=== PATIENT | male | born 1935 | race Caucasian/White ===

== ENCOUNTER 2019-04-08 13:47 | Inpatient (IN) ==
[2019-04-08] MEDS ORDERED: ROCEPHIN 1 GM in NS 50 ML IV ONE (14:18)
[2019-04-08] MEDS ORDERED: DUONEB (A & A) INH ONE (14:19)
--- NOTE | 2019-04-08 14:58 | EKG Report ---
Test Performed on : 04/08/2019 2:00:25 PM Test Reason : sob Blood Pressure : / mmHG Vent. Rate : 078 BPM Atrial Rate : 258 BPM P-R Int : 000 ms QRS Dur : 088 ms QT Int : 374 ms P-R-T Axes : 000 -78 079 degrees QTc Int : 426 ms Atrial fibrillation. Left axis deviation Low voltage QRS Inferior infarct , age undetermined Cannot rule out Anteroseptal infarct (cited on or before 30-NOV-2015) Abnormal ECG When compared with ECG of 13-AUG-2018 14:36, No significant change was found Unconfirmed Result
[2019-04-08 15:09] LABS: BASO# 0.02 X1000 (0.0-0.2); BASO% 0.2 % (0.0-0.8); EOS# 0.16 X1000 (0.0-0.7); EOS% 1.8 % (0.0-10.0); HEMATOCRIT 45.4 % (42.0-52.0); HEMOGLOBIN 15.6 g/dL (14.0-18.0); IMM GRAN# 0.03 X1000 (0.0-0.04); IMM GRAN% 0.3 % (0.0-0.5); LYMPH# 0.69 X1000 (1.2-3.4); LYMPH% 7.7 % (20.5-51.1); MCH 30.1 PG (27-31); MCHC 34.4 g/dL (33-37); MCV 87.5 FL (81-99); MONO# 1.25 X1000 (0.11-0.59); MPV 10.5 FL (7.4-10.4); NEUT# 6.79 X1000 (1.4-6.5); PLT 201 X1000 (130-400); RBC 5.19 XMIL (4.7-6.1); RDW 14.3 % (11.5-14.5); WBC 8.94 X1000 (4.8-10.8)
[2019-04-08 15:29] LABS: AGAP 14; ALB/GLOB RATIO 1.4; ALBUMIN 3.6 g/dL (3.5-5.0); ALKALINE PHOSPHATASE 208 U/L (32-122); BUN 16 mg/dL (8-22); CALCIUM 8.9 mg/dL (8.8-10.2); CHLORIDE 98 mmol/L (98-107); CK PROFILE 78 U/L (24-204); COSMO 272; CREATININE 1.1 mg/dL (0.7-1.2); ESTIMATED GFR > 60; GLUCOSE 114 mg/dL (70-104); GOT 54 U/L (10-34); GPT 55 U/L (10-44); POTASSIUM 3.7 mmol/L (3.5-5.1); SODIUM 135 mmol/L (136-145); TCO2 23 mmol/L (25-35); TOTAL BILIRUBIN 1.38 mg/dL (0.20-1.00); TOTAL PROTEIN 6.2 g/dL (6.3-8.3)
[2019-04-08 15:45] LABS: INR 1.87; PROTIME 22.9 Seconds (11.0-16.0)
[2019-04-08 15:46] LABS: PTT 48.6 Seconds (22.3-41.8)
[2019-04-08] MEDS ORDERED: TYLENOL PO PRN (16:36)
[2019-04-08] MEDS ORDERED: ZOFRAN IV PRN (16:36)
--- NOTE | 2019-04-08 16:43 | Diag Imaging Result Doc PS360 ---
EXAM: CHEST-2 VIEWS INDICATION: cough, greenish sputum, sob TECHNIQUE: 2 views COMPARISON: 12/21/2018 FINDINGS: There are COPD changes. There is ill-defined consolidation at the right lung base suggesting likely right lower lobe pneumonia. There is stable biapical fibrotic change. There is no significant pleural fluid collection or pneumothorax. The cardiomediastinal silhouette and central vasculature are grossly unremarkable. IMPRESSION: Ill-defined right lower lobe consolidation suggesting likely pneumonia. Electronically signed by Jaylen Gates 04/08/2019 4:41 PM
[2019-04-08] MEDS ORDERED: ZITHROMAX 500 MG/NS 500 MG/250 ML IVPB IV SCH (17:00)
[2019-04-08] MEDS: SOLU-MEDROL IV SCH ×2 (17:07→18:48)
--- NOTE | 2019-04-08 17:36 | PROVIDER DOCUMENTATION ---
This chart was entered by Tess Dey Scribe, acting as scribe for Donny Barton MD. HPI-Respiratory General - General Chief Complaint: Shortness of Breath Stated Complaint: SOB / CONGESTION Time Seen by Provider: 04/08/19 14:03 Source: patient Allergies/Adverse Reactions: Patient Allergies Allergy/AdvReac Type Severity Reaction Status Date / Time levofloxacin [From Levaquin] Allergy Unknown Verified 08/13/18 15:06 oxycodone Allergy Unknown Verified 08/13/18 15:10 tetanus toxoid, adsorbed Allergy Unknown Verified 08/13/18 15:06 Home Medications: Home Medication List Medication Instructions Recorded Confirmed Last Taken Type Dorzolamide 2% Oph Soln [Trusopt 1 drop LEFT EYE BID 11/30/15 08/13/18 08/13/18 History 2% Oph Soln] Latanoprost 0.005% Oph Soln 1 drop BOTH EYES HS 11/30/15 08/13/18 08/13/18 History [Xalatan 0.005% Oph Soln] Timolol 0.5% Oph Solution 1 drop LEFT EYE BID 11/30/15 08/13/18 08/13/18 History [Timoptic 0.5% Oph Solution] Apixaban [Eliquis] 5 mg PO BID 09/08/16 08/13/18 08/13/18 History Folic Acid 1 mg PO DAILY #30 tablet 09/15/16 08/13/18 08/13/18 Rx Tiotropium [place] Inhaler 1 puff INH RTDAILY #1 inhaler 11/16/17 08/13/18 08/13/18 Rx [Spiriva] Diltiazem HCl [Cartia Xt] 120 mg PO QAM 08/13/18 08/13/18 08/13/18 History Fluticasone/Salmeterol [Advair 1 each IH BID 08/13/18 08/13/18 08/13/18 History 500-50 Diskus] - History of Present Illness-Resp Nature of Presenting Problem: 84yom presents to ED by EMS cc SOB, wheezing and cough. Pt reports he was treated last week with Augmentin for Strep/pharyngitis. Pt also reports he is on home 02 of 2liters 24hrs a day. Pt is A&Ox3. Pt has hx of CHF, COPD and HTN. denies chest pain. Review of Systems - Adult - REVIEW OF SYSTEMS - ADULT Constitutional: reports: no symptoms reported Eyes: reports: no symptoms reported Ears, Nose, Mouth & Throat: reports: no symptoms reported Cardiovascular: denies: chest pain, palpitations Respiratory: reports: see HPI Gastrointestinal: reports: no symptoms reported Genitourinary: reports: no symptoms reported Past History - Adult - PAST MEDICAL HISTORY-ADULT Review of Records: reports: Nursing Assessment Review, Medications Reviewed, Social history reviewed & non-contributory. Major Childhood Illnesses: reports: denies history Cardiovascular: reports: A-Fib, CHF, HTN, hyperlipidemia Respiratory: reports: COPD Gastrointestinal: reports: denies history Obstetrical/Gynecological: reports: denies history Genitourinary: reports: denies history Musculoskeletal: reports: denies history Neurological: reports: denies history Psychiatric: reports: denies history Endocrine/Immune: reports: denies history Other Conditions: reports: denies history - PRIOR SURGERIES/PROCEDURES Surgical/Procedure History: reports: reviewed, not pertinent - IMMUNIZATION STATUS Childhood Immunizations: See Nurse Assessment Flu Vaccine: See Nurse Assessment - FAMILY HISTORY Family History: reviewed, not pertinent Physical Exam-General - CONSTITUTIONAL General Appearance: appears well, alert, mild distress - EYES Eyes: PERRL/EOMI, pink conjunctivae - HEAD, EARS, NOSE, MOUTH & THROAT HENMT: normocephalic/atraumatic, moist mucous membranes, normal ENT inspection - RESPIRATORY Respiratory: respiratory distress (mild), accessory muscle use, crackles (Rt lower lung), wheezing (expiratory, bilaterally), other (Tachypneic Fair airway entry, bilaterally). negative: rales, rhonchi, stridor - CARDIOVASCULAR Cardiovascular: normal peripheral pulses, no edema, irregularly irregular. negative: bradycardia, tachycardia - GASTROINTESTINAL (ABDOMEN) Abdominal Exam: normal bowel sounds, non tender, soft - MUSCULOSKELETAL Extremity: normal range of motion, non-tender, normal gait, normal inspection - SKIN Integumentary: normal color, normal turgor, warm/dry - NEUROLOGIC Neurologic: patient safety sitter II-XII nml as tested, grossly normal, no motor/sensory deficits - PSYCHIATRIC Psych/Mental Status: normal thought content, normal thought process, oriented x 3 Progress - PLAN OF CARE/RESULTS Progress/Plan/Lab Results: Vital Signs - 8 hr 04/08/19 13:56 04/08/19 14:08 04/08/19 14:09 Temperature 98.3 F Pulse Rate 85 Respiratory Rate 26 H Blood Pressure 123/79 153/83 O2 Sat by Pulse Oximetry 85 L 92 L 92 L 04/08/19 14:30 04/08/19 14:32 04/08/19 15:00 Temperature Pulse Rate Respiratory Rate Blood Pressure 137/80 O2 Sat by Pulse Oximetry 93 L 92 L 94 L 04/08/19 15:02 04/08/19 15:15 Temperature Pulse Rate Respiratory Rate Blood Pressure 129/96 132/83 O2 Sat by Pulse Oximetry 92 L 89 L Laboratory Results - last 24 hr 04/08/19 04/08/19 04/08/19 14:50 14:50 14:50 WBC 8.94 RBC 5.19 Hgb 15.6 Hct 45.4 MCV 87.5 MCH 30.1 MCHC 34.4 RDW Std Deviation 14.3 Plt Count 201 MPV 10.5 H Immature Gran % (Auto) 0.3 Neut % (Auto) 76.0 H Lymph % (Auto) 7.7 L [place] % (Auto) 14.0 H Eos % (Auto) 1.8 Baso % (Auto) 0.2 Immature Gran # (Auto) 0.03 Neut # (Auto) 6.79 H Lymph # (Auto) 0.69 L [place] # (Auto) 1.25 H Eos # (Auto) 0.16 Baso # (Auto) 0.02 PT INR PTT (Actin FS) Sodium 135 L Potassium 3.7 Chloride 98 Carbon Dioxide 23 L Anion Gap 14 BUN 16 Creatinine 1.1 Estimated GFR/1.73 m2 > 60 BUN/Creatinine Ratio 15 Glucose 114 H Calculated Osmolality 272 Calcium 8.9 Total Bilirubin 1.38 H AST 54 H ALT 55 H Alkaline Phosphatase 208 H Creatine Kinase 78 Troponin T Cvp-E-Nlxemngeikg Pept 706 H Total Protein 6.2 L Albumin 3.6 Globulin 2.6 Albumin/Globulin Ratio 1.4 04/08/19 04/08/19 14:50 14:50 WBC RBC Hgb Hct MCV MCH MCHC RDW Std Deviation Plt Count MPV Immature Gran % (Auto) Neut % (Auto) Lymph % (Auto) [place] % (Auto) Eos % (Auto) Baso % (Auto) Immature Gran # (Auto) Neut # (Auto) Lymph # (Auto) [place] # (Auto) Eos # (Auto) Baso # (Auto) PT 22.9 H INR 1.87 PTT (Actin FS) 48.6 H Sodium Potassium Chloride Carbon Dioxide Anion Gap BUN Creatinine Estimated GFR/1.73 m2 BUN/Creatinine Ratio Glucose Calculated Osmolality Calcium Total Bilirubin AST ALT Alkaline Phosphatase Creatine Kinase Troponin T < 0.010 Dxj-[id number]-Xhcjbkfzhlv Pept Total Protein Albumin Globulin Albumin/Globulin Ratio Orders Category Date Time Status Admit - [facility] Routine AdmDCTranf 04/08/19 16:34 Active Activity - Up with Assistance ORDERED Care 04/08/19 16:34 Active Cardiac Monitoring DIRECTED Care 04/08/19 14:17 Active Intake and Output-Strict ORDERED Care 04/08/19 16:34 Active Oxygen Therapy- ED Nursing DIRECTED Care 04/08/19 14:17 Active Saline Loc NOW Care 04/08/19 14:17 Active Vital Signs Order Q 4-HR ASSESS Care 04/08/19 16:34 Active Z-Document. for Tele Applied ORDERED Care 04/08/19 16:34 Active Heart Healthy Diet Diet 04/08/19 16:35 Active CHEST-2 VIEWS [RAD] Stat Exams 04/08/19 14:17 Completed ABG [RESP] Routine Lab 04/09/19 06:00 Uncollected BASIC METABOLIC PANEL [CHEM] Routine Lab 04/09/19 06:00 Ordered CBC WITH ELECTRONIC DIFF [HEME] Stat Lab 04/08/19 14:50 Completed CBC WITH NO DIFF [HEME] Routine Lab 04/09/19 06:00 Ordered CK PROFILE [SP CHEM] Stat Lab 04/08/19 14:50 Completed COMPREHENSIVE METABOLIC PANEL [CHEM] Stat Lab 04/08/19 14:50 Completed PRO B-NATRIURETIC PEPTIDE Stat Lab 04/08/19 14:50 Completed PROTIME WITH INR [COAG] Stat Lab 04/08/19 14:50 Completed PTT [COAG] Stat Lab 04/08/19 14:50 Completed TROPONIN T Stat Lab 04/08/19 14:50 Completed Acetaminophen [Tylenol] Med 04/08/19 16:36 Active 650 mg PO Q6H PRN PRN Albuterol 2.5MG/Ipratrop 0.5MG [Duoneb (A & A)] Med 04/08/19 19:30 Active 3 ml INH RTQ4H Albuterol 2.5MG/Ipratrop 0.5MG [Duoneb (A & A)] Med 04/08/19 14:19 Discontin ued 6 ml INH NOW ONE Azithromycin 500 mg/Ns [Zithromax 500 mg/Ns] Med 04/08/19 17:00 Discontinued 500 mg in 250 ml IV Q24H CefTRIAXONE [Rocephin] 1 gm Med 04/08/19 14:18 Discontinued 0.9% Sodium Chloride Inj [Ns] 50 ml IV NOW Diltiazem C.d. [Cardizem Cd] Med 04/09/19 09:00 Active 120 mg PO DAILY Fluticasone/Salmet 500/50 INH [Advair 500/50 Diskus] Med 04/08/19 19:30 Active 1 puff INH RTBID Methylprednisolone Sod Succ [Solu-Medrol] Med 04/08/19 18:00 Active 40 mg IV Q8H Ondansetron [Zofran] Med 04/08/19 16:36 Active 4 mg IV Q4H PRN PRN Aerosol Treatments Routine Oth 04/08/19 14:19 Completed Aerosol Treatments Routine Oth 04/08/19 16:33 Completed Aerosol Treatments Stat Oth 04/08/19 14:19 Completed Aerosol Treatments Stat Oth 04/08/19 16:33 Completed CP/SOB/Palp >45 yrs of Age Stat Oth 04/08/19 14:17 Ordered MDI Treatments Stat Ot 04/08/19 16:36 Completed Oxygen Device Routine Oth 04/08/19 16:30 Completed Pulse Oximetry Routine Oth 04/08/19 16:30 Completed Telemetry [OM.EQ] Routine Oth 04/08/19 16:34 Active EKG [EKG] Stat Ther 04/08/19 13:59 Draft Transfer/Admit Order [TRANSFER] Routine Transfer 04/08/19 16:38 Ordered Result Diagrams: 04/08/19 14:50 04/08/19 14:50 - EKG 1 Time of EKG reading by physician:: 14:07 EKG Read and Signed by:: Donny Barton EKG Interpretation (*Must complete 3 of following elements*): Abnormal Rate: 78 Rhythm: atrial fibrillation Alloy: left QRS: other (low voltage) - XRAY 1 XRAY Study: Chest (EXAM: CHEST-2 VIEWS INDICATION: cough, greenish sputum, sob TECHNIQUE: 2 views COMPARISON: 12/21/2018 FINDINGS: There are COPD changes. There is ill-defined consolidation at the right lung base suggesting likely right lower lobe pneumonia. There is stable biapical fibrotic change. There is no significant pleural fluid collection or pneumothorax. The cardiomediastinal silhouette and central vasculature are grossly unremarkable. IMPRESSION: Ill-defined right lower lobe consolidation suggesting likely pneumonia. 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 Chung Time Discussed: 16:27 Consult Disposition: Admit (Hx, PE and pt care discussed, accpeted.) Departure - Departure Date of Disposition Decision: 04/08/19 Time of Disposition Decision: 16:26 DIAGNOSIS: COPD exacerbation Pneumonia Qualifiers: Pneumonia type: due to unspecified organism Laterality: right Lung location: lower lobe of lung Qualified Code(s): J18.1 - Lobar pneumonia, unspecified organism Disposition: ADMITTED INPATIENT 09 Certified Medical Emergency: Emergent Condition: Stable - Critical Care Note This patient required my direct & personal management of CC.: No Attestation - Physician/ SHORTY Attestation Patient care was provided by Advanced Practice Provider:: No The physician spent face to face time with patient:: Yes Advanced Practice Provider documentation review:: Supervising physician onsite and consulted in the evaluation and care of this patient. The physician did have a face to face encounter with the patient. This chart was documented by the indicated scribe, (Tess Dey Scribe) and accurately reflects the services I performed and decisions made by me, Donny Jerez MD, as attested by the provider's signature.
[2019-04-08] MEDS ORDERED: MAXIPIME 2 GM in NS 100 ML IV SCH (18:00)
[2019-04-08] MEDS: NS 1,000 ML IV SCH (18:47)
[2019-04-08] MEDS: ZYVOX 600 MG/D5W 600 MG/300 ML IVPB IV SCH (18:48)
--- NOTE | 2019-04-08 19:22 | Diag Imaging Result Doc PS360 ---
EXAM: CT THORAX W/O CONTRAST INDICATION: pneumonia/copd TECHNIQUE: This exam was performed using automated exposure control, adjustment of mA or kV according to patient size, and/or use of iterative reconstruction technique. COMPARISON: 06/22/2018 FINDINGS: There is very severe pulmonary emphysema with a large bullae at the apices and especially medial to the right middle lobe and anterior segment of the right upper lobe abutting the mediastinum. This is stable. There is a trace pneumothorax at the anterior aspect of the chest overlying the anterior segment of the right upper lobe and right middle lobe. There is also small volume pleural fluid at the right lung base. There is extensive mucous plugging involving the right lower lobe bronchi and there is patchy airspace consolidation involving the right lower lobe indicating pneumonia. There is also a component of atelectasis at the right lung base. There are stable hyperdense pleural plaques at the right lung base. There is biapical pleural and parenchymal fibrosis. There is also stable milder scarring involving the left lower lobe, mainly at the left lung base. There is a stable pleural-based nodule at the posterior lateral left lung base that probably represents a noncalcified granuloma. There is focal and somewhat nodular fibrosis involving the left lower lobe on image 52 of series 3 that is unchanged. There are a few mildly prominent mediastinal and right hilar lymph nodes that are probably reactive. Limited views of the upper abdomen are essentially unremarkable. IMPRESSION: 1.Advanced bullous emphysema. 2.Extensive right lower lobe bronchial mucous plugging with surrounding consolidation indicating pneumonia with a component of atelectasis. 3.Stable patchy fibrotic changes bilaterally. 4.Other incidental/nonacute findings detailed above. Electronically signed by Jaylen Gates 04/08/2019 7:20 PM
[2019-04-08] MEDS: ADVAIR 500/50 DISKUS INH SCH (19:36)
[2019-04-08] MEDS: DUONEB (A & A) INH SCH ×2 (19:37→23:15)
[2019-04-08] MEDS: ZOSYN 3.375 GM in NS 50 ML IV SCH (21:21)
[2019-04-08] MEDS: TESSALON PO SCH (21:21)
[2019-04-08] MEDS: ELIQUIS PO SCH (21:21)
[2019-04-09] MEDS: ROBITUSSIN-DM PO PRN ×2 (00:46→04:26)
--- NOTE | 2019-04-09 01:43 | HISTORY AND PHYSICAL ---
PRIMARY CARE PHYSICIAN: Tony Galindo DO CHIEF COMPLAINT: One week of sore throat and productive cough. HISTORY OF PRESENT ILLNESS: Mr. Merchant is an 84-year-old male with a history of COPD, chronic atrial fibrillation and hypertension, who initially presented to the ER today with a chief complaint of 1 week of increasing shortness of breath with cough as well as a sore throat. The patient reports that a week ago he developed a sore throat and a mild cough. By the 3rd day of his symptoms he noticed that his sputum was green in color, so he went and saw his primary care physician who diagnosed him with Streptococcus pharyngitis. The patient was given a prescription for a 10-day supply of Augmentin. The patient reports that he then saw his primary care physician on Thursday when his symptoms did not improve. Dr. Tony Galindo at that time recommended inpatient admission because he was concerned about pneumonia. The patient declined admission and was told to continue his antibiotic therapy. The patient reports that since he has been taking the antibiotics, his sore throat has improved, however, his shortness of breath and productive cough have not improved. He denies having any chest pain. He states that his appetite is decent, and he has been trying to drink fluids as much as possible. In the ER a chest x-ray was done that revealed right lower lobe pneumonia. While in the ER the patient received a DuoNeb treatment as well as 1 g of IV Rocephin. PAST MEDICAL HISTORY: 1. COPD. 2. Hypertension. 3. Chronic atrial fibrillation on Eliquis. 4. Hyperlipidemia. 5. History of spontaneous pneumothorax. 6. Hepatic steatosis. 7. Severe emphysema PAST SURGICAL HISTORY: 1. Thoracotomy with blebectomy. 2. Hemorrhoidectomy. 3. Lumbar spine surgery. 4. History of multiple chest tubes. FAMILY HISTORY: The patient's father due to complications with lung cancer. The patient's mother is , and due to complications related to congestive heart failure. SOCIAL HISTORY: The patient is . He quit smoking cigarettes in 1994. He denies any alcohol or illicit drug use. The patient is a retired . ALLERGIES: 1. Levaquin. 2. Oxycodone. 3. Tetanus toxoid. HOME MEDICATIONS: The patient's home medications are not available at the time of this dictation. REVIEW OF SYSTEMS: A 12-point review of systems has been performed. Please refer to the history of present illness for pertinent positives and negatives. PHYSICAL EXAMINATION: VITAL SIGNS: Temperature 98.3 degrees, blood pressure 132/83, heart rate 89, respirations 26, O2 saturations 92% on 2 L nasal cannula. GENERAL: This is a chronically ill-appearing elderly male lying comfortably on the stretcher in no acute distress. SKIN: No rashes, no lesions. HEAD: Normocephalic, atraumatic. Eyes conjunctiva clear, EOMI, PERRLA. NECK: Supple. No JVD. No lymphadenopathy. No carotid bruits. HEART: S1, S2 normal. Irregularly irregular rhythm. LUNGS: Coarse breath sounds bilaterally with rhonchi. ABDOMEN: Positive bowel sounds. Soft, nontender, nondistended. No rebound tenderness noted. EXTREMITIES: No edema. No cyanosis. No calf tenderness. Peripheral pulses palpable. NEUROLOGIC: The patient is alert and oriented x4. No focal neurologic deficits noted. The patient is hard of hearing and wears a hearing aid in the left ear. LABS: White blood cell count 8.9, hemoglobin 15, hematocrit 45, platelets 201,000. INR 1.8. Sodium 135, potassium 3.7, chloride 98, CO2 23, BUN 16, creatinine 1.1, glucose 114, total bilirubin 1.3. AST 54, ALT 55, alkaline phosphatase 208. ProBNP 706. Total protein 6.2. Troponin less than 0.01. Albumin 3.6. Two-view chest x-ray reveals a right lower lobe consolidation, likely pneumonia. ASSESSMENT AND PLAN: 1. Acute hypoxemic respiratory failure. This is likely secondary to a combination of the patient's COPD and pneumonia. We will treat the patient for both disease processes. 2. Right lower lobe pneumonia. Blood and sputum cultures have been ordered. The patient will be started on broad-spectrum antibiotics, bronchodilator therapy and supplemental oxygen. 3. Chronic obstructive pulmonary disease exacerbation. The patient has been started on bronchodilator therapy, supplemental oxygen, and steroid therapy. 4. Strep pharyngitis. We will continue with antibiotic therapy. 5. Chronic atrial fibrillation. The patient is currently rate controlled. We will restart Cardizem CD and Eliquis. 6. Elevated liver function tests. The patient has a history of hepatic steatosis. We will check a hepatitis profile and monitor the liver function tests closely. 7. Deep vein thrombosis prophylaxis. The patient is on Eliquis. cc: Luciana Gaston MD MTDD
[2019-04-09] MEDS: ZOSYN 3.375 GM in NS 50 ML IV SCH ×4 (04:20→21:09)
[2019-04-09] MEDS: SOLU-MEDROL IV SCH ×4 (04:20→18:15)
[2019-04-09] MEDS: DUONEB (A & A) INH SCH ×6 (04:30→23:10)
[2019-04-09 05:03] LABS: ALLEN TEST YES; BE -4.8 mmoll (-3.0-3.0); BLOOD TYPE ARTERIAL; METHB 1.6 % (0.0-1.5); O2(CT) 20.2 mL/dL (15.0-23.0); O2HB 90.7 % (95.0-99.0); PCO2(98.6) 30 mmHg (35-45); PO2(98.6) 62 mmHg (60-100); SAMPLE BLOOD; SAO2 93.9 % (95.0-100.0); THB 15.9 g/dL (11.5-17.4)
[2019-04-09 05:05] LABS: MODALITY CANNULA
[2019-04-09] MEDS: NS 1,000 ML IV SCH (06:48)
[2019-04-09] MEDS: ZYVOX 600 MG/D5W 600 MG/300 ML IVPB IV SCH ×2 (06:48→16:49)
[2019-04-09 07:39] LABS: HEMATOCRIT 43.7 % (42.0-52.0); HEMOGLOBIN 15.1 g/dL (14.0-18.0); MCH 30.5 PG (27-31); MCHC 34.6 g/dL (33-37); MCV 88.3 FL (81-99); MPV 10.3 FL (7.4-10.4); RBC 4.95 XMIL (4.7-6.1); WBC 6.28 X1000 (4.8-10.8)
[2019-04-09 08:01] LABS: AGAP 15; ALBUMIN 3.1 g/dL (3.5-5.0); ALKALINE PHOSPHATASE 169 U/L (32-122); BUN 16 mg/dL (8-22); CALCIUM 8.7 mg/dL (8.8-10.2); CHLORIDE 102 mmol/L (98-107); COSMO 283; CREATININE 0.9 mg/dL (0.7-1.2); ESTIMATED GFR > 60; GLUCOSE 181 mg/dL (70-104); GOT 33 U/L (10-34); GPT 45 U/L (10-44); POTASSIUM 3.4 mmol/L (3.5-5.1); SODIUM 139 mmol/L (136-145); TCO2 22 mmol/L (25-35); TOTAL BILIRUBIN 0.98 mg/dL (0.20-1.00); TOTAL PROTEIN 6.2 g/dL (6.3-8.3)
[2019-04-09] MEDS: ADVAIR 500/50 DISKUS INH SCH ×2 (08:05→19:17)
[2019-04-09] MEDS: TESSALON PO SCH ×3 (08:45→16:49)
[2019-04-09] MEDS: ELIQUIS PO SCH ×2 (08:45→21:08)
[2019-04-09] MEDS ORDERED: POTASSIUM CHLORIDE 20% LIQUID PO ONE (08:46)
[2019-04-09] MEDS ORDERED: CARDIZEM CD PO SCH (09:00)
[2019-04-09 09:14] LABS: HEMOGLOBIN A1C 5.6 % (4.8-6.0)
[2019-04-09] MEDS ORDERED: SALINE LOCK IV FLUID XX ONE (16:32)
[2019-04-09] MEDS ORDERED: LASIX IV ONE (16:32)
[2019-04-09] MEDS: TIMOPTIC 0.5% OPH SOLUTION LEFT EYE SCH (16:48)
[2019-04-09] MEDS ORDERED: HALL'S COUGH LOZENGE MT PRN (20:41)
[2019-04-09] MEDS: CARDIZEM CD PO SCH (21:08)
[2019-04-09] MEDS: CRESTOR PO SCH (21:08)
--- NOTE | 2019-04-09 21:14 | PROGRESS NOTE ---
DATE: 04/09/2019 SUBJECTIVE: The patient is resting. He states that he is still having persistent cough. OBJECTIVE: Vital Signs: Temperature 97.3 degrees, blood pressure 133/79, heart rate 96, respirations 20, O2 saturation 97% on 3 L nasal cannula. General: This is a chronically ill- appearing elderly male lying in bed in no acute distress. Heart: S1, S2 normal. Lungs: Coarse breath sounds bilaterally with rhonchi. Abdomen: Positive bowel sounds. Soft, nontender, nondistended. Extremities: No edema, no cyanosis. Neurologic: The patient is alert and oriented x4. LABS: Reviewed. ASSESSMENT AND PLAN: 1. Acute on chronic hypoxemic respiratory failure. Multifactorial. 2. Right lower lobe pneumonia. Continue with antibiotics, supplemental oxygen and bronchodilator therapy. Further management as per the stone sawyer. 3. Chronic obstructive pulmonary disease. Continue with bronchodilator therapy and steroids. 4. Chronic atrial fibrillation. The patient is rate controlled. Continue on Cardizem CD and Eliquis. 5. Hypokalemia. Will replace the patient's potassium. cc: Luciana Gaston MD MTDD
[2019-04-09] MEDS: XALATAN 0.005% OPH SOLN BOTH EYES SCH (21:18)
[2019-04-09] MEDS: FOLIC ACID PO SCH (21:25)
--- NOTE | 2019-04-10 00:50 | PULMONOLOGY CONSULTATION ---
DATE: 04/09/2019 REQUESTING PHYSICIAN: Dr. Gaston. REASON FOR CONSULTATION: Pneumonia. HISTORY OF PRESENT ILLNESS: Mr. Merchant is an 84-year-old, white male, with severe COPD and component of fibrosis, who is followed in my clinic. The patient has chronic hypoxemic respiratory failure with prior asbestos exposure. The patient reports approximately 7 to 10 days ago, he developed a sore throat/pharyngitis. He initially received a dose of azithromycin on 04/04/2019, and after evaluation by Dr. Galindo, received a 10-day course of Augmentin on 04/05/2019. The patient presented to the emergency room with increasing cough and shortness of breath. His sputum remains green in color. His initial blood cultures and sputum culture have been negative. He underwent a CT scan of the thorax yesterday, which revealed extensive emphysematous changes with a pneumonia in the right lower lobe which was not present on prior CT scan 06/22/2018. PAST MEDICAL HISTORY: 1. Severe COPD with chronic hypoxemic respiratory failure. 2. Spontaneous pneumothorax x3. 3. Status post cataract surgery. 4. Chronic atrial fibrillation. 5. Dyslipidemia. 6. Hypertension. 7. Coma. 8. Status post hemorrhoidectomy. SOCIAL HISTORY: The patient has been a nonsmoker for greater than 20 years. No alcohol use. FAMILY HISTORY: Positive for heart failure, lung cancer, and coronary artery disease. REVIEW OF SYSTEMS: Notable for generalized weakness associated with current presentation. PHYSICAL EXAMINATION: A thin white male who appears his stated age. He does not appear to be breathless at rest. Blood pressure 133/79, heart rate 96, respiratory rate 20, oxygen saturation 95% on 3 L per nasal cannula.HEENT: Pupils are equal and reactive. Oropharynx appears clear. Neck: Supple. Chest: Prolonged expiratory phase with decreased breath sounds of right base. No definite E to A changes. Cardiac: Irregularly irregular. Abdomen: Soft. Extremities: Trace edema. LABORATORIES: Sodium 139, potassium 3.4, chloride 102, bicarbonate 22, BUN 16, creatinine 0.9. Sputum cultures and blood cultures are negative to date. White blood count 6.28, hemoglobin 15.1, platelet count 207,000. Arterial blood gas on 2 L per nasal cannula, pH 7.40, pCO2 of 32, PO2 of 62. IMPRESSION: An 84-year-old with: 1. Community-acquired pneumonia. 2. Recent pharyngitis with resolution of symptoms. 3. Severe chronic obstructive pulmonary disease. 4. Chronic hypoxemic respiratory failure. 5. Generalized weakness associated with current presentation. RECOMMENDATIONS: 1. Agree with current antibiotic regimen. 2. Continue bronchial hygiene as you are doing. 3. Would limit IV fluids unless he shows signs of dehydration. With his severe disease, he will be fluid avid. 4. Following with you. cc: Yo Emmanuel MD
[2019-04-10] MEDS: DUONEB (A & A) INH SCH ×6 (03:33→22:43)
[2019-04-10] MEDS: SOLU-MEDROL IV SCH ×3 (05:15→21:14)
[2019-04-10] MEDS: ZYVOX 600 MG/D5W 600 MG/300 ML IVPB IV SCH (05:15)
[2019-04-10] MEDS: ZOSYN 3.375 GM in NS 50 ML IV SCH ×4 (05:15→21:14)
[2019-04-10] MEDS: ADVAIR 500/50 DISKUS INH SCH ×2 (07:45→19:22)
--- NOTE | 2019-04-10 07:56 | Diag Imaging Result Doc PS360 ---
EXAM: CHEST-1 VIEW INDICATION: Pneumonia TECHNIQUE: 2 views COMPARISON: 04/08/2019 FINDINGS: Fibrotic changes are again noted. The ill-defined consolidation at the right lung base is essentially stable. No new consolidation is appreciated. Cardiac silhouette is stable. IMPRESSION: Stable chest. Electronically signed by Jaylen Gates 04/10/2019 7:54 AM
[2019-04-10 08:04] LABS: HEMATOCRIT 41.6 % (42.0-52.0); HEMOGLOBIN 14.3 g/dL (14.0-18.0); MCH 30.5 PG (27-31); MCHC 34.4 g/dL (33-37); MCV 88.7 FL (81-99); MPV 10.4 FL (7.4-10.4); RBC 4.69 XMIL (4.7-6.1); RDW 14.1 % (11.5-14.5); WBC 14.14 X1000 (4.8-10.8)
[2019-04-10 08:06] LABS: AGAP 14; BUN 17 mg/dL (8-22); CALCIUM 8.8 mg/dL (8.8-10.2); CHLORIDE 105 mmol/L (98-107); COSMO 289; ESTIMATED GFR > 60; GLUCOSE 203 mg/dL (70-104); POTASSIUM 3.7 mmol/L (3.5-5.1); SODIUM 141 mmol/L (136-145); TCO2 22 mmol/L (25-35)
[2019-04-10] MEDS ORDERED: FOLIC ACID PO SCH (09:00)
[2019-04-10] MEDS: ELIQUIS PO SCH ×2 (09:33→21:14)
[2019-04-10] MEDS: TIMOPTIC 0.5% OPH SOLUTION LEFT EYE SCH ×2 (09:33→18:10)
[2019-04-10] MEDS: CARDIZEM CD PO SCH ×2 (09:34→21:14)
[2019-04-10] MEDS: TESSALON PO SCH ×3 (09:34→18:09)
[2019-04-10 11:29] LABS: HEPATITIS PROFILE ACUTE SEE COMMENTS
--- NOTE | 2019-04-10 15:19 | PROGRESS NOTE ---
DATE: 04/10/2019 SUBJECTIVE: The patient is sitting up in bed. He states that he slept well last night, and he is coughing less. OBJECTIVE: Vital Signs: Temperature 97 degrees, blood pressure 127/81, heart rate 93, respirations 18, O2 saturation 97% on 3 L nasal cannula. General: This is a chronically ill- appearing, elderly male, lying in bed in no acute distress. Heart: S1, S2 normal. Lungs: Coarse breath sounds bilaterally. Abdomen: Positive bowel sounds. Soft, nontender, nondistended. Extremities: No edema. No cyanosis. Neurologic: The patient is alert and oriented x3. IMAGING AND LABORATORY DATA: White blood cell count 14, hemoglobin 14, hematocrit 41, platelets 239,000. Sodium 141, potassium 3.7, chloride 105, CO2 of 22, BUN 17, creatinine 1, glucose 203. Chest x-ray shows no consolidation at the right lung base. ASSESSMENT AND PLAN: 1. Acute on chronic hypoxemic respiratory failure. 2. Right lower lobe pneumonia. Continue with antibiotics, supplemental oxygen, and bronchodilator therapy. The sputum culture is growing gram-negative rods. Will discontinue the Zyvox. Further management as per the traffic circuit engineer. 3. Chronic obstructive pulmonary disease. Continue with bronchodilator therapy and steroid therapy. 4. Chronic atrial fibrillation. Rate controlled. Continue on Cardizem CD and Eliquis. 5. Will consult Physical Therapy. cc: Luciana Gaston MD MTDD
[2019-04-10] MEDS: CRESTOR PO SCH (21:14)
[2019-04-10] MEDS: FOLIC ACID PO SCH (21:14)
[2019-04-10] MEDS: XALATAN 0.005% OPH SOLN BOTH EYES SCH (21:14)
[2019-04-11] MEDS: DUONEB (A & A) INH SCH ×6 (04:35→23:29)
[2019-04-11] MEDS ORDERED: GAMUNEX-C 10% IV ONE (06:00)
[2019-04-11] MEDS: SOLU-MEDROL IV SCH ×2 (06:37→12:16)
[2019-04-11] MEDS: ZOSYN 3.375 GM in NS 50 ML IV SCH ×3 (06:37→17:57)
--- NOTE | 2019-04-11 07:13 | PULMONOLOGY PROGRESS NOTE ---
DATE: 04/10/2019 SUBJECTIVE: The patient is awake and alert. He reports he feels a little better than yesterday. He has a cough with minimal sputum production. OBJECTIVE: Vital Signs: Blood pressure 117/68, heart rate 80, respiratory rate 19, and oxygen saturation 97% on 3 L per nasal cannula. He has been afebrile for the last 24 hours. HEENT: Pupils are equal and reactive. Oropharynx is clear. Neck: Supple. Lungs: Chest reveals crackles at the right base. Cardiac: S1-S2. Abdomen: Soft and without hepatosplenomegaly. Extremities: Without edema. LABORATORIES: White blood count 14.14, hemoglobin 14.3, and platelet count 239,000. Sodium 141, potassium 3.7, chloride 105, bicarbonate 22, BUN 17, and creatinine 1.0. Immunoglobulin levels are markedly reduced at 414 for the IgG total. Microbiology is growing gram-negative jeffery. IMPRESSION: An 84-year-old with: 1. Community-acquired pneumonia. 2. Pharyngitis which has resolved. 3. Gram-negative organism in sputum. 4. Chronic hypoxemic respiratory failure. 5. 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 RECOMMENDATIONS: 1. Continue current antibiotics pending results of sputum culture. Anticipate the discontinuation of Zyvox. 2. Continue bronchodilators. 3. We will give gammaglobulin given the severe reduction in his immunoglobulin level. cc: Yo Emmanuel MD
[2019-04-11 07:24] LABS: BASO# 0.01 X1000 (0.0-0.2); BASO% 0.1 % (0.0-0.8); IMM GRAN# 0.04 X1000 (0.0-0.04); IMM GRAN% 0.3 % (0.0-0.5); LYMPH# 0.61 X1000 (1.2-3.4); LYMPH% 4.1 % (20.5-51.1); MCH 30.2 PG (27-31); MCHC 34.1 g/dL (33-37); MCV 88.7 FL (81-99); MONO# 0.41 X1000 (0.11-0.59); MONO% 2.7 % (1.7-9.3); MPV 9.8 FL (7.4-10.4); NEUT# 13.91 X1000 (1.4-6.5); NEUT% 92.8 % (42.2-75.2); PLT 282 X1000 (130-400); RBC 4.96 XMIL (4.7-6.1); RDW 14.2 % (11.5-14.5); WBC 14.98 X1000 (4.8-10.8)
[2019-04-11 07:30] LABS: CALCIUM 8.3 mg/dL (8.8-10.2); CREATININE 1.2 mg/dL (0.7-1.2); POTASSIUM 3.9 mmol/L (3.5-5.1)
[2019-04-11] MEDS: ADVAIR 500/50 DISKUS INH SCH ×2 (07:39→19:45)
[2019-04-11 08:48] LABS: BANDS 2 % (0-1); LYMPHS 2 % (21-51); MONO 4 % (1-9); SEGS 92 % (42-75)
[2019-04-11] MEDS: ELIQUIS PO SCH ×2 (09:11→20:37)
[2019-04-11] MEDS: TESSALON PO SCH ×3 (09:11→17:57)
[2019-04-11] MEDS: CARDIZEM CD PO SCH ×2 (09:11→20:37)
[2019-04-11] MEDS: TIMOPTIC 0.5% OPH SOLUTION LEFT EYE SCH ×2 (09:11→16:09)
--- NOTE | 2019-04-11 15:32 | PROGRESS NOTE ---
DATE: 04/11/2019 SUBJECTIVE: The patient is sitting up at the edge of the bed. He states that he feels a lot better today. He is coughing less and eating well. OBJECTIVE: Vital Signs: Temperature 97.8, blood pressure 121/70, heart rate 74, respirations 19. O2 sats 95% on 3 L nasal cannula. General: This is a chronically ill- appearing elderly male sitting at the edge of the bed, in no acute distress. Head normocephalic, atraumatic heart. Heart: S1, S2 normal. Irregularly irregular rhythm. Lungs: Diminished breath sounds bilaterally. No wheezing. No rales. No rhonchi. Abdomen: Positive bowel sounds. Soft, nontender, nondistended. Extremities: No edema no cyanosis. No calf tenderness. Neurologic: The patient is alert and oriented x4. No focal neurologic deficits noted. LABS: White blood cell count 14.9, hemoglobin 15, hematocrit 44, platelets 282,000. Sodium 142, potassium 3.9, chloride 104, CO2 26, BUN 21, creatinine 1.2, glucose 162. ASSESSMENT AND PLAN: 1. Chronic hypoxemic respiratory failure. Continue to treat the underlying infection. 2. Right lobe pneumonia secondary to Enterobacter cloacae. We will continue with zosyn, bronchodilator therapy and supplemental oxygen. is following. 3. COPD exacerbation. Improved. We will start weaning the steroids. Continue with bronchodilator therapy. 4. Chronic atrial fibrillation. The patient is rate controlled. Continue on Cardizem CD and Eliquis. 5. Leukocytosis. This is likely steroid-induced. We are going to start weaning the patient's steroid dosage today. 6. Acute kidney injury. The patient's creatinine is slightly elevated today. We will continue to monitor it closely. Will avoid nephrotoxic agents. 7. Steroid induced hyperglycemia. The patient's hemoglobin A1c is 5.6. Hopefully this will improve as the patient's steroids are decreased. 8. Hypogammaglobulinemia. The patient received an immunoglobulin infusion today. 9. Continue with physical therapy. NOTE: The case was discussed with Dr. Tony Galindo. Dr. Galindo will be assuming care of the patient on 04/12/2019. cc: Luciana Gaston MD [facility]
[2019-04-11] MEDS ORDERED: ELIQUIS ONE (16:58)
[2019-04-11] MEDS ORDERED: CARDIZEM CD ONE (16:59)
[2019-04-11] MEDS ORDERED: CRESTOR ONE (16:59)
[2019-04-11] MEDS ORDERED: FOLIC ACID ONE (16:59)
[2019-04-11] MEDS ORDERED: ZOSYN ONE ×2 (16:59→17:00)
[2019-04-11] MEDS ORDERED: NS 50 ML ONE ×2 (17:01)
--- NOTE | 2019-04-11 20:11 | PROGRESS NOTE ---
DATE: 04/11/2019 PROGRESS NOTE/NOTE FOR ASSUMPTION OF CARE: Mr. Merchant was admitted to the hospitalist service on the 08 of April. He has undergone a pulmonary consultation as well as ongoing medical management for right lower lobe pneumonia. Sputum culture is briefly reviewed. He has also been found to be immunoglobulin deficient and has received some supplemental IV Ig. The family today signed him up for our product marketing engineer program and I will now be resuming care while he is in the hospital. I have gone by and explained the program and my desire to follow him when he is admitted to the hospital over the course of the next several months as a member. This will certainly facilitate a better continuity of care both in and outside the hospital. The chart is briefly reviewed. Full progress no will fall tomorrow. I have left the nursing staff numbers for contacting me this evening should there be any change in his clinical condition. I have also spoken with Dr. Gaston who understands that she will be transferring the care to myself in the morning. No further issues at this time. I have spoken personally to the patient at the bedside this evening in anticipation of assuming care tomorrow morning. cc: Tony Galindo,
[2019-04-11] MEDS: XALATAN 0.005% OPH SOLN BOTH EYES SCH (20:37)
[2019-04-11] MEDS: CRESTOR PO SCH (20:37)
[2019-04-11] MEDS: FOLIC ACID PO SCH (20:37)
[2019-04-12] MEDS: ZOSYN 3.375 GM in NS 50 ML IV SCH ×4 (00:30→17:42)
[2019-04-12] MEDS: DUONEB (A & A) INH SCH ×6 (03:26→23:30)
[2019-04-12 06:20] LABS: AGAP 8; BUN 23 mg/dL (8-22); CALCIUM 8.8 mg/dL (8.8-10.2); CHLORIDE 102 mmol/L (98-107); COSMO 283; CREATININE 0.9 mg/dL (0.7-1.2); ESTIMATED GFR > 60; GLUCOSE 158 mg/dL (70-104); POTASSIUM 3.6 mmol/L (3.5-5.1); SODIUM 138 mmol/L (136-145); TCO2 28 mmol/L (25-35)
[2019-04-12 06:29] LABS: HEMATOCRIT 43.1 % (42.0-52.0); HEMOGLOBIN 14.6 g/dL (14.0-18.0); IMM GRAN# 0.03 X1000 (0.0-0.04); IMM GRAN% 0.4 % (0.0-0.5); LYMPH# 0.45 X1000 (1.2-3.4); LYMPH% 5.8 % (20.5-51.1); MCHC 33.9 g/dL (33-37); MCV 88.7 FL (81-99); MONO# 0.21 X1000 (0.11-0.59); MONO% 2.7 % (1.7-9.3); MPV 9.8 FL (7.4-10.4); NEUT# 7.08 X1000 (1.4-6.5); NEUT% 91.1 % (42.2-75.2); PLT 242 X1000 (130-400); RBC 4.86 XMIL (4.7-6.1); RDW 13.9 % (11.5-14.5); WBC 7.77 X1000 (4.8-10.8)
[2019-04-12] MEDS ORDERED: CYANOCOBALAMIN IM ONE (07:09)
[2019-04-12] MEDS: ADVAIR 500/50 DISKUS INH SCH ×2 (07:16→20:10)
[2019-04-12 07:18] LABS: LYMPHS 4 % (21-51); MONO 6 % (1-9); SEGS 90 % (42-75)
--- NOTE | 2019-04-12 08:16 | PULMONOLOGY PROGRESS NOTE ---
DATE: 04/11/2019 SUBJECTIVE: The patient is awake, alert and conversant. He has a cough, but has difficulty clearing secretions. Overall, he feels slightly stronger than yesterday. OBJECTIVE: Vital Signs: The patient has been afebrile for the last 24 hours. Blood pressure 126/80, heart rate 76, respiratory rate 16, oxygen saturation 98% on 3 L per nasal cannula. HEENT: Pupils are equal and reactive. Oropharynx appears clear. Neck: Neck is supple. Chest: Reveals crackles without E to A changes at the right base. Cardiac exam: S1, S2. Abdomen: Soft. Extremities: Without edema. LABORATORIES: 1. Sputum culture reveals Enterobacter cloacae complex, which is sensitive to Zosyn. 2. Immunoglobulin level is severely reduced at 414, and he has undergone a replacement dose earlier this morning. IMPRESSION: 1. Community-acquired pneumonia. 2. Gram-negative organism identified in sputum cultures. 3. Immunoglobulin deficiency. 4. Chronic hypoxemic respiratory failure. PLAN: 1. Continue current antibiotic regimen. 2. Continue bronchodilators and bronchial hygiene. 3. Will repeat immunoglobulin level tomorrow to see if the dose given was adequate for replacement. cc: MD Tony Hartley,
[2019-04-12] MEDS: ROBITUSSIN-DM PO PRN ×2 (08:44→15:28)
[2019-04-12] MEDS: DIFLUCAN 100 MG/NS 100 MG/50 ML IVPB IV SCH (08:46)
[2019-04-12] MEDS: TIMOPTIC 0.5% OPH SOLUTION LEFT EYE SCH ×2 (08:47→15:28)
[2019-04-12] MEDS: CULTURELLE PO SCH (08:50)
[2019-04-12] MEDS: ELIQUIS PO SCH ×2 (08:51→22:08)
[2019-04-12] MEDS: TESSALON PO SCH ×3 (08:52→17:42)
[2019-04-12] MEDS: CARDIZEM CD PO SCH ×2 (09:01→22:08)
--- NOTE | 2019-04-12 09:44 | Diag Imaging Result Doc PS360 ---
EXAM: CHEST-2 VIEWS 04/12/2019 HISTORY: RLL pneumonia TECHNIQUE: PA and lateral chest COMMENT: There is bilateral coarse pulmonary fibrosis particularly in the upper lung zones with retraction of the herman superiorly. Compared to 04/10/2019 the opacification present in the lung bases particularly in the right base has diminished. IMPRESSION: Improved right lower lobe pneumonia. Pulmonary fibrosis. Electronically signed by Jonathon Mckeon 04/12/2019 9:42 AM
[2019-04-12] MEDS: SOLU-MEDROL IV SCH ×2 (09:58→22:08)
[2019-04-12] MEDS: HUMALOG SUBQ SCH ×3 (11:58→22:08)
[2019-04-12] MEDS ORDERED: DUONEB (A & A) ONE (15:14)
--- NOTE | 2019-04-12 21:44 | PROGRESS NOTE ---
DATE: 04/12/2019 This is following assumption of care from hospitalist service. Some background history. Mr. Merchant is a pleasant 84-year-old gentleman who is a patient of mine who carries a variety of diagnoses including but not limited to atherosclerotic coronary artery disease, BPH, COPD, hypertension, mixed dyslipidemia, pulmonary hypertension, solitary pulmonary nodule, atrial fibrillation, glaucoma and vitamin B12 deficiency. He was last seen in the [facility] for annual wellness visit in January. He is followed by Dr. Elliot Galindo from a cardiology standpoint and Dr. Emmanuel from a pulmonary standpoint, he is also followed at the [facility] via Dr. Martinez. He was seen in the [facility] approximately a week ago and was prescribed antibiotics for an abnormal chest x-ray suggestive of early infiltrate in the right lower lung and was advised should he fail to improve or interval worsen that it would be reasonable to consider him for admission. Turns out that on the he decided to present to the emergency room for evaluation and was admitted for right lower lobe pneumonia. He has been followed by the hospitalist as well as server assistant. During this admission he underwent a CT scan, compared to historical CT scans dated May [address] scan on admission showing a bolus emphysema, extensive right lower lobe bronchial mucous plugging with consolidation and some incidental findings as noted within the record. Historical CT scan dated 05/2018 and 10/2017 are noted as well. Patient was admitted in October 2017 for pneumonia with dense opacity in the right lower lobe which had worsened suggestive of right lower lobe pneumonia and then a followup CT scan in May 2018 showing resolution of this consolidative process. He has a history of a bolus rupture historically with a collapsed left lung in 2015 and a collapsed right lung in 2013. These were treated and evaluated at [facility]. I have been called in to assist with ongoing medical management. SOCIAL HISTORY: Is well known to me. He is a with 3 children ages 57, 56 and 54 with 4 grandchildren and 3 great-grandchildren. 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 Patient smoked 2 packs per day for more than 40 years and quit in 1994. He as well traveled and has a past history. FAMILY HISTORY: Significant for lung cancer for father at 49 years old, mother 77 due to heart issues, brother at 56 due to lung and back cancer and sister at 80 due to heart issues and lung cancer. REVIEW OF SYSTEMS: Is consistent with COPD/emphysema with pulmonary function testing in 2017 showing an FEV1 FVC at 51%, FEV1 at 51%, FVC at 72%, FEF 75/75 at 31%, he was using oxygen at night as needed and there was demonstration of improvement with inhalers. He has a history of vitamin D and vitamin B12 deficiency for which he continues with supplement. Had a gallbladder taken out in 2016 complicated by perioperative atrial fibrillation with RVR. He continues on negative chronotropic agents. He has a history of an abnormal fasting sugar within a glucose tolerance test in 2019 that was consistent with impaired glucose tolerance with a 2 hour level at 194 mg/dL and hemoglobin A1c of 5.4. Has a history of BPH for which he has had Proscar and Flomax complicated by shortness of breath and low blood pressure. His most recent PSA at 1.67 having stopped Proscar secondary to respiratory issues. He has multiple cardiac stress tests and a remote history of cardiac catheterization while living in [place]. Vitals on the morning of rounding blood pressure 134/95, respirations 18, pulse at 91, temperature at 98.4 degrees, saturating 98% on 3 L. I's and O's cumulatively 2450 in and 300 out for +2150. EXAM: HEENT is unremarkable. Cardiovascular with a soft 2+ systolic murmur at the right upper sternal border without radiation. Lungs are clear without wheezes, rhonchi, or rales. There is decreased breath sounds in the right posterior base. Abdomen is soft without guarding or abdominal discomfort. Extremities demonstrating some trace pretibial edema. Cranial nerves 2-12 are grossly intact. Patient is alert, oriented x3 without any cognitive deficiencies. LABORATORY: For this morning white blood cell count 7.7, hemoglobin and hematocrit at 14.6 and 43.1 with platelets at 242,000. Sodium 138, potassium 3.6, chloride 102, bicarb at 20, BUN and creatinine at 23 and 0.9 with glucose ranging between 114 and 203, calcium 8.8. Immunoglobulins obtained yesterday demonstrating IgA at 536, IgG low at 414, IgM at 38, subsequent followup immunoglobulins IgA at 500, IgG at 846 and IgM at 42 these numbers would be interval improved after infusion of IgG. Blood cultures pending from admission are negative. Sputum culture demonstrating Enterobacter and yeast resistant to cefazolin but otherwise sensitive to multiple agents. He continues on Zosyn 3.375 g IV q.6 hours. Historical review of cultures strep is negative and final throat culture is pending at the time of discharge. IMPRESSION: 1. 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 He continues on outpatient maintenance inhalant therapy as well as supplemental oxygen and now is admitted with sputum positive for Enterobacter cloacae as well as yeast. We will be continuing with the Zosyn as prescribed repeating a followup chest x-ray for review and adding Diflucan for yeast coverage. Continue with pulmonary toilet as written. Appreciate pulmonology's input in the case. 2. 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 This will be added to his discharge problems, supplemental IgG may be indicated in the future will continue to follow clinically in this regard. 3. Chronic atrial fibrillation, patient continuing on negative chronotropic agent specifically Cardizem as well as Eliquis telemetry showing atrial fibrillation with rapid ventricular response and increased ectopy, electrolytes are reviewed. 4. Hyperglycemia. It is difficult to determine whether this is steroid mediated or actually patient transitioning to overt diabetes, home glucose monitoring was not performed at the time of his glucose tolerance test earlier in the year although he did reach a level of 213 mg/dL his hemoglobin A1c at 1 hour his hemoglobin A1c is appropriate at 5.4. We will be starting supplemental insulin coverage treating to 140 mg/dL or less as indicated. A repeat hemoglobin A1c may be beneficial. 5. Benign prostatic hypertrophy aware. 6. Vitamin D and vitamin B12 deficiency. Patient in need of supplemental and ongoing replacement for B12, a single isolated B12 injection is provided today. DISPOSITION: Follow up in the morning as discussed. I have spoken personally to the patient's daughter this evening giving her an update of our course of treatment and plan and treatment and care. She understands the course of treatment and plan. No further issues at this time. Note is dictated on the evening of rounds. cc: Tony Galindo DO
[2019-04-12] MEDS: CRESTOR PO SCH (22:07)
[2019-04-12] MEDS: XALATAN 0.005% OPH SOLN BOTH EYES SCH (22:07)
[2019-04-12] MEDS: FOLIC ACID PO SCH (22:07)
[2019-04-13] MEDS: ZOSYN 3.375 GM in NS 50 ML IV SCH ×4 (01:10→19:17)
[2019-04-13] MEDS: DUONEB (A & A) INH SCH ×6 (04:59→23:35)
[2019-04-13] MEDS: HUMALOG SUBQ SCH ×4 (06:08→20:51)
[2019-04-13] MEDS: ADVAIR 500/50 DISKUS INH SCH ×2 (07:29→19:20)
--- NOTE | 2019-04-13 07:36 | PULMONOLOGY PROGRESS NOTE ---
DATE: 04/12/2019 SUBJECTIVE: The patient is awake, alert, and conversant. He reports his sputum production has diminished. He has had "a good day". OBJECTIVE: The patient has been afebrile for the last 24 hours. Blood pressure 127/72, heart rate 78, respiratory rate 20, oxygen saturation 95% on nasal cannula. HEENT: Pupils are equal and reactive. Oropharynx is clear. Neck is supple. Chest reveals crackles at the right base. Cardiac Examination: S1-S2. Abdomen is soft. Extremities are without edema. Laboratories: Chest x-ray reveals fibrosis with bullous disease. Infiltrate at the right lung base is diminishing. White blood count 7.77, hemoglobin 14.6, platelet count 242,000. Sodium 138, potassium 3.6, chloride 102, bicarbonate 28, BUN 23, creatinine 0.9. Repeat immunoglobulin level following transfusion reveals a normal IgG level at 846. IMPRESSION: An 84-year-old with: 1. Community-acquired pneumonia with Enterobacter cloacae complex identified. 2. Chronic hypoxemic respiratory failure. 3. Immunoglobulin deficiency. DISCUSSION: An 84-year-old with problems outlined above. He continues to clinically improved. His repeat immunoglobulin levels are in the acceptable range. RECOMMENDATIONS: 1. Continue bronchodilators and bronchial hygiene. 2. Consider discharge when appropriate by Dr. Tony Galindo. Would consider giving him a 21 day course of oral antibiotics given the severity of his COPD and bullous emphysema. 3. Continue oxygen for hypoxemic respiratory failure. cc: MD Tony Hartley, DO AMINAD
[2019-04-13] MEDS: DELSYM LIQUID PO SCH ×2 (08:50→20:51)
[2019-04-13] MEDS: DIFLUCAN 100 MG/NS 100 MG/50 ML IVPB IV SCH (08:53)
[2019-04-13] MEDS: MUCINEX PO SCH ×2 (08:53→20:50)
[2019-04-13] MEDS: TESSALON PO SCH ×3 (08:53→18:16)
[2019-04-13] MEDS: CARDIZEM CD PO SCH ×2 (08:53→20:50)
[2019-04-13] MEDS: ELIQUIS PO SCH ×2 (08:53→20:50)
[2019-04-13] MEDS: CULTURELLE PO SCH (08:53)
[2019-04-13] MEDS: SOLU-MEDROL IV SCH ×2 (08:53→20:51)
[2019-04-13] MEDS: TIMOPTIC 0.5% OPH SOLUTION LEFT EYE SCH ×2 (08:54→17:38)
[2019-04-13] MEDS ORDERED: LASIX PO ONE (17:36)
--- NOTE | 2019-04-13 19:16 | PROGRESS NOTE ---
DATE: 04/13/2019 INDICATION FOR PROLONGED HOSPITALIZATION: Ongoing medical management for right lower lobe pneumonia. Overnight, the patient complaining of increasing cough. Symptom medications not providing him significant benefit especially when he is active. Immunoglobulin levels having been reassessed by pulmonary demonstrating marked improvement. OBJECTIVE: Vitals this morning: Blood pressure is 135/66, saturating 96% on 2 L. Respirations at 16, pulse at 84, temperature 97.1 degrees. Intake and output, not being recorded. LABORATORY FOR THIS MORNING: Includes a glucose ranging between 151 and 158. Immunoglobulin demonstrating post transfusion of IVIG. IVIG level rising from 414 to 846. PHYSICAL EXAM: HEENT: Unremarkable. Cardiovascular: Irregularly, irregular rhythm with murmur. Respiratory: Coarse rhonchi noted throughout with decreased breath sounds in the lower lobes bilaterally. Abdomen: Soft, without tenderness. No rebound or guarding. Extremities: With trace pretibial edema suggested. Neurologic: Cranial nerves 2-12 are grossly intact. Patient is alert oriented x3 without any cognitive deficiencies. IMPRESSION: 1. Right lower lobe pneumonia superimposed on end-stage bolus emphysema and pulmonary fibrosis. He continues on IV antibiotics for Enterobacter positive sputum. He can be transition to sulfa based medicines; however, he cannot tolerate Levaquin secondary to sensitivity and intolerance. This will be option at the time of discharge. He also continues on IV Diflucan, which was started yesterday. Pulmonary's note suggesting potential for discharge is very encouraging especially since there has been some improvement in the chest x-ray, although from a cost standpoint, the patient is not improved. We will be transitioning him from Robitussin DM to plain Mucinex and Delsym over the counter. I am trying to avoid narcotic-based antitussives secondary to respiratory and blood pressure side effects. 2. Immunoglobulin deficiency status post transfusion with marked improvement. 3. Atrial fibrillation, chronic in nature. Patient continues on negative chronotropic agent as well as cardioembolic prophylaxis. DISPOSITION: I have advised the patient that I will be back by tomorrow likely with the intent to discharge to home. We will transition to oral Bactrim in the morning. In the interim based on his persistent cough and we will be trying 40 mg of Lasix to see if this provides him any benefit from a respiratory/pulmonary standpoint. The patient understands course of treatment and plan. No further issues at this time. Note is dictated on the evening of rounds. cc: Tony Galindo DO
[2019-04-13] MEDS: CRESTOR PO SCH (20:50)
[2019-04-13] MEDS: FOLIC ACID PO SCH (20:50)
[2019-04-13] MEDS: XALATAN 0.005% OPH SOLN BOTH EYES SCH (20:51)
[2019-04-13] MEDS ORDERED: CULTURELLE PO SCH (21:00)
--- NOTE | 2019-04-13 23:23 | PULMONOLOGY PROGRESS NOTE ---
DATE: 04/13/2019 SUBJECTIVE: The patient is awake, alert, and conversant. He reports he has been ambulating in the hallway. He continues to have some cough and sputum production. OBJECTIVE: Vital Signs: The patient has been afebrile for the last 24 hours. Blood pressure 149/79, heart rate 82, respiratory rate 20, oxygen saturation 96% on 2 L per nasal cannula. HEENT: Pupils are equal and reactive. Oropharynx is clear. Neck: Supple. Chest: Reveals crackles at the right base. Cardiac: S1, S2. Abdomen: Soft. Extremities: Without edema. LABORATORIES: White blood count 7.77, hemoglobin 14.6, platelet count 242,000 (04/12 data). IMPRESSION: An 84-year-old with 1. Community-acquired pneumonia. 2. Chronic hypoxemic respiratory failure. 3. Immunoglobulin deficiency. DISCUSSION: An 84-year-old with problems outlined above. He continues to clinically improve. RECOMMENDATIONS: 1. Continue bronchodilators and bronchial hygiene. 2. Agree with plans for discharge by Dr. Tony Galindo. With his immunoglobulin deficiency and severe COPD, I would favor a 21-day course of antibiotics with followup chest x-ray. 3. Continue oxygen for hypoxemic respiratory failure. cc: MD Tony Hartley, DO
[2019-04-14] MEDS: ZOSYN 3.375 GM in NS 50 ML IV SCH ×2 (01:26→06:26)
[2019-04-14] MEDS: DUONEB (A & A) INH SCH ×2 (04:02→07:30)
[2019-04-14] MEDS: HUMALOG SUBQ SCH (06:26)
[2019-04-14 07:29] VITALS: BP 147/83
[2019-04-14] MEDS: ADVAIR 500/50 DISKUS INH SCH (07:29)
[2019-04-14] MEDS: DIFLUCAN 100 MG/NS 100 MG/50 ML IVPB IV SCH (09:48)
[2019-04-14] MEDS: SOLU-MEDROL IV SCH (09:51)
[2019-04-14] MEDS: TESSALON PO SCH (09:52)
[2019-04-14] MEDS: MUCINEX PO SCH (09:52)
[2019-04-14] MEDS: CULTURELLE PO SCH (09:53)
[2019-04-14] MEDS: ELIQUIS PO SCH (09:54)
[2019-04-14] MEDS: TIMOPTIC 0.5% OPH SOLUTION LEFT EYE SCH (09:55)
[2019-04-14] MEDS: DELSYM LIQUID PO SCH (09:56)
[2019-04-14] MEDS: CARDIZEM CD PO SCH (09:58)
--- NOTE | 2019-04-17 20:20 | DISCHARGE SUMMARY ---
ADMISSION DATE: 04/08/2019 DISCHARGE DATE: 04/14/2019 DISCHARGE DIAGNOSES: 1. Pneumonia involving the right lower lobe with sputum culture returning as positive for Enterobacter cloacae resistant to cefazolin. The patient was treated with intravenous antibiotics and transitioned to oral medications at the time of discharge. 2. End-stage chronic obstructive pulmonary disease/emphysema with history of spontaneous pneumothorax further complicated by pulmonary fibrosis putting patient at long-term risk for ongoing and accelerated pulmonary decline. CT scan of the chest on admission demonstrating advanced bullous emphysema as well as right lower lobe mucosal plugging with a component of atelectasis. 3. Elevated white blood cell count presumed to be infectious mediated present on admission and resolved with the time of discharge. White blood cell count 7.7. 4. Hyperglycemia etiology queried, patient historically with prediabetic condition prior to admission now with glucoses in excess of 203 mg/dL. I have asked the patient to follow his glucoses at home twice daily with interval followup early next week. 5. 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 IgG at the time of discharge 846 and IgM at the time of discharge 42. ADDITIONAL DIAGNOSES PRESENT AT THE TIME OF ADMISSION AND DISCHARGE: 1. Atherosclerotic coronary artery disease. 2. Benign prostatic hypertrophy . 3. Dyslipidemia. 4. Pulmonary hypertension. 5. Glaucoma. 6. Atrial fibrillation. 7. B12 deficiency. CONSULTATIONS: Including pulmonology. PROCEDURES: Including CT scan of the chest. DISCHARGE MEDICATIONS: Bactrim 1 p.o. b.i.d., Culturelle 1 p.o. b.i.d., Delsym [id number] 10 mL q.12, Diflucan 100 mg p.o. daily, Pollock lozenges [id number] as directed, Mucinex 600 mg p.o. b.i.d., Tylenol as directed, fluticasone salmeterol inhaler 1 puff b.i.d. Medications continued at the time of discharge including eye drops, Eliquis 5 mg b.i.d., folic acid 1 mg once daily, Spiriva 1 puff daily, diltiazem 120 mg b.i.d., Crestor 10 mg once daily and albuterol inhalers as directed. HOSPITAL COURSE: The patient was admitted to the hospitalist service on 04/08/2019 following worsening of pulmonary condition. He had been diagnosed several days earlier with streptococcal pharyngitis based on elevated white blood cell count and positive strep screen in the office. He was admitted to the internal medicine service on the hospitalist service and was noted to have a consolidation of the right lower lobe suggestive of pneumonia. Considering his tenuous pulmonary status he was started on IV antibiotics. A CT scan of the chest and pulmonary consultation followed. His sputum was noted to be positive for Enterobacter. He has not had a previous positive sputum historically. On the the family asked if I would resume care of this individual and I continued to follow the patient for the remainder the hospitalization 04/11 to 04/14 and am responsible for dictating the discharge summary as above. Patient's sputum culture also demonstrated the presence of yeast therefore Diflucan was added to the Zosyn which was started on admission. He also was infused 20 mg of IV Ig with a robust response. This will need to be checked in followup perhaps at 4 to 6 weeks following hospitalization. Another significant development during hospitalization was hyperglycemia requiring insulin. His hemoglobin A1c at 5.4, not particularly worrisome for diabetes however he was on steroids and his sugar reached greater than 200 mg/dL raising concern for progression from a prediabetic state as an outpatient to a full blown diabetes now requiring either oral or injectable medications. He will be checking his glucose at home twice daily over the course of the next 5 to 7 days and will review that when we see him in followup next week. DISPOSITION: The patient is released to home with interval followup Thursday of next week for posthospital followup and review. The patient understands the course of treatment and plan. No further issues at this time. Note regarding discharge is dictated on 04/17/2019 at 6:57 p.m. cc: Tony Galindo DO
== END 2019-04-14 10:51 | disposition home or self-care (01) | DRG 178 ==
LOC: ED 13:47 → 3N 16:45 → SUATTDRO 16:45 → 1N 04-11 10:54
PROVIDERS: ADMIT Internal Medicine; ATTEND Internal Medicine
CPT/HCPCS: 71010; 71020; 71045; 71046; 71250; 80048; 80053; 80074; 80076; 82550; 82784; 82805; 82948; 83036; 83880; 84484; 85025; 85027; 85610; 85730; 87040; 87070; 87077; 87081; 87186; 87205; 87430; 87899; 93005; 94640; 94760; 94761; 94799; 96365; 96367; 96375; 97116; 97162; 97530; 99284; A9270; J0456; J0696; J1450; J1561; J1815; J1940; J2020; J2543; J2920; J3420; J7030; XXXXX

== ENCOUNTER 2019-04-20 14:33 | Inpatient (IN) ==
[2019-04-20 16:46] LABS: BASO# 0.01 X1000 (0.0-0.2); BASO% 0.1 % (0.0-0.8); EOS# 0.17 X1000 (0.0-0.7); EOS% 1.3 % (0.0-10.0); HEMATOCRIT 48.2 % (42.0-52.0); HEMOGLOBIN 16.5 g/dL (14.0-18.0); IMM GRAN# 0.26 X1000 (0.0-0.04); LYMPH# 1.36 X1000 (1.2-3.4); LYMPH% 10.2 % (20.5-51.1); MCHC 34.2 g/dL (33-37); MCV 87.6 FL (81-99); MONO% 8.3 % (1.7-9.3); MPV 10.7 FL (7.4-10.4); NEUT# 10.39 X1000 (1.4-6.5); NEUT% 78.1 % (42.2-75.2); PLT 296 X1000 (130-400); RDW 14.3 % (11.5-14.5); WBC 13.29 X1000 (4.8-10.8)
[2019-04-20 16:58] LABS: INR 1.31; PROTIME 17.3 Seconds (11.0-16.0)
--- NOTE | 2019-04-20 18:06 | Diag Imaging Result Doc PS360 ---
CHEST-2 VIEWS - 04/20/2019 INDICATION: shortness of breath COMPARISON: 04/12/2019 FINDINGS: There is a moderately large left basilar pneumothorax of about 50%. There is severe COPD. Severe diffuse pulmonary scarring. IMPRESSION: Rather large left basilar pneumothorax. Electronically signed by Kamar Ferrera 04/20/2019 6:04 PM
[2019-04-20] MEDS: ADVAIR 500/50 DISKUS INH SCH (20:09)
--- NOTE | 2019-04-20 20:21 | HISTORY AND PHYSICAL ---
ATTENDING PHYSICIAN: Dr. Tony Galindo. ADMITTING PHYSICIAN: Dr. Tony Galindo. CONSULTING PHYSICIANS: Dr. Ernie Farias, General Surgery service, and Dr. Yo Emmanuel, Pulmonology service. HISTORY OF PRESENT ILLNESS: Mr. Merchant is an 84-year-old gentleman with a past medical history consistent with atherosclerotic coronary artery disease, BPH, COPD/emphysema, hypertension, abnormal fasting sugar, mixed dyslipidemia, pulmonary hypertension, atrial fibrillation, and B12, who was recently discharged from the hospital approximately 7-10 days ago, with a history of right lower lobe consolidation and pneumonia. He was discharged on Bactrim and fluconazole based on culture sensitivities for Enterobacter and yeast. He has noted that he has been more tachypneic and experiencing more dyspnea with limited activity, but generally his coughing is less. He states that he is perhaps up to more than 50%, but no more than 75% better than at the time of discharge. Based on his shortness of breath which appears out of proportion to exam and abnormal lung sounds in the left lower posterior, a chest x-ray was obtained in the office, demonstrating a large pneumothorax. I have consulted telephonically with Dr. Emmanuel, who has recommended admission and possible chest tube placement, and I have also talked to General Surgery service, who has consulted on the patient. If further surgical management would be indicated, there will be some issues with regards to coagulation secondary to the fact that he is on Eliquis twice daily for atrial fibrillation. ALLERGIES: Levaquin, tetanus, and oxycodone. FAMILY HISTORY: Both parents are . He has a brother 56, , and a sister 80 years old, . Patient is with 3 children, ages 56, 55, and 53, with 4 grandchildren and 3 great-grandchildren. The patient is after 35 years of marriage. in 1994. 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 The patient has more than an 70-apom-tmle history, but has been quit since 1994. He drinks about 9 beers per week. REVIEW OF SYSTEMS: Unremarkable, except that noted in the HPI. Patient's primary fish protector, Dr. Elliot Galindo. Patient's primary supervisor lathing, Dr. Yo Emmanuel. The patient does have a previous history of pneumothorax in March 2014, on the right, and a pneumothorax on the left in 2016. These were prior to him becoming established in the clinic and I am uncertain as to how these were addressed. I suspect that they might be chest tube related. PHYSICAL EXAMINATION: VITALS: In the office, blood pressure 112/70, pulse at 70, saturating 93% on 2 L, temperature 97.2 degrees. Patient is at 191.6 pounds with a BMI of 24.59. HEENT: Normocephalic, atraumatic. Pupils are equal and reactive to light and accommodation. NECK: Soft and supple without lymphadenopathy or bruits. CARDIOVASCULAR: Regular rate and rhythm. There is a soft systolic murmur at the right upper sternal border. LUNGS: Clear. There are rgfhzbeol-yq-wwfbiz breath sounds in the left posterior base. There are no wheezes or rhonchi. ABDOMEN: Soft. EXTREMITIES: Benign. NEUROLOGICAL: Cranial nerves 2-12 are grossly intact. Patient is alert and oriented x3, without any cognitive deficiencies. IMPRESSION/PLAN: An 84-year-old with spontaneous pneumothorax of the left hemithorax involving the primary lower half. Chest x-ray confirmation on admission is noted. Initial laboratory demonstrates a mildly elevated PT. Recommendations for chest tube after 48 hours off of anticoagulation. Awaiting formal Pulmonary consultation and opinion. Certainly, should the patient's clinical status decline acutely over the course of the next 24 to 48 hours, a semi- urgent chest tube placement would be considered at the expense of possible hemorrhagic complications. The patient and daughter understand the course of treatment and plan. General Surgery has come by and provided an opinion. No additional issues at this time. MEDICATIONS ON ADMISSION: Reviewed and will be reconciled. He is on eyedrops timolol and latanoprost, Eliquis 5 mg twice daily which will be held on admission, Crestor 10 mg once daily, Cardizem 120 mg b.i.d., folic acid 1 mg once daily, Advair 500/50 one puff b.i.d., Spiriva 18 mcg 1 puff 1 daily, Bactrim DS 1 p.o. b.i.d., and Diflucan 100 mg once daily for 4 additional days. DISPOSITION: The patient understands the course of treatment and plan. No further issues at this time. TIME: Total time at the bedside and dictation, approximately 25 minutes. cc: Tony Galindo DO
--- NOTE | 2019-04-20 20:32 | GENERAL SURGERY CONSULTATION ---
DATE: 04/20/2019 HISTORY OF PRESENT ILLNESS: This is an 84-year-old gentleman with COPD, emphysematous changes of the lung, recently admitted for pneumonia, seen in Dr. Galindo's office today, followup chest x- ray was concerning for left-sided pneumothorax. He was admitted for further management. Historically, he has had 3 prior episodes of spontaneous pneumothoraces dating back to his 20s when he was in the [employer]. He had a pleurodesis on the right, he describes, and he has had a spontaneous on the left, but this has been over the last 60 years. He does have chronic shortness of breath, O2 requirement at home, dyspnea with exertion, and says overall, he is about his usual state of health. MEDICAL HISTORY: COPD, recent pneumonia, atrial fibrillation on Eliquis, hyperlipidemia, hypertension. SURGICAL HISTORY: Hemorrhoidectomy, right-sided pleurodesis. SOCIAL HISTORY: Quit smoking 20 years ago, but was a long-standing smoker. No alcohol. Retired from both the [employer] program and with the [employer]. FAMILY HISTORY: Reviewed. Noncontributory. REVIEW OF SYSTEMS: A 10-point negative other than what is mentioned in his HPI. PHYSICAL EXAMINATION: He is afebrile, pulse 72, blood pressure 108/69, oxygen saturation 99% on 2 L nasal cannula. He is 109 pounds, 6 foot 4 inches.General: He is alert, in no acute distress. He is eating dinner, table on side of bed. HEENT: No scleral icterus. No cervical mass. Cardiovascular: Normal rate. Pulmonary: There is no subcutaneous air. Trachea is midline with equal chest rise and no increased work of breathing. Abdomen: Soft, nontender. Integument: Warm and dry. Psychiatric: Appropriate affect. Neurologic: No gross deficits. Lymphatic: I do not feel any cervical or axillary adenopathy. Peripheral vascular, no lower extremity edema. LABORATORY AND DIAGNOSTIC DATA: Labs are still resulting. White count 13, hematocrit is 48, platelets 296,000. INR is 1.31. Glucose 163. Chest x-ray is pending. ASSESSMENT AND PLAN: This is an 84-year-old gentleman with possible spontaneous left-sided pneumothorax. We will follow up the chest x-ray here. He is on Eliquis, which he has taken as recent as today. Given his asymptomatic nature, I would advise observation pending his findings on his chest x-ray with possible chest tube if failure of resolution noted in 48 hours after his Eliquis has reversed. Obviously, if he were to clinically deteriorate prior to that, we would accept the bleeding risk and place a chest tube. I spoke with both the patient and daughter. They are agreeable to this. We will keep him on supplemental nasal cannula, will not titrate. Hopefully, this will help facilitate resolution. I reviewed his previous CT scans. He does have significant bullous changes bilaterally. It is possible this was being visualized on this chest x- ray as a bleb. We will follow him closely going forward. cc: MD Tony Bermudez, DO
[2019-04-20] MEDS: CARDIZEM CD PO SCH (20:58)
[2019-04-20] MEDS: SEPTRA DS PO SCH (20:58)
[2019-04-20] MEDS: XALATAN 0.005% OPH SOLN BOTH EYES SCH (20:58)
[2019-04-21] MEDS: ADVAIR 500/50 DISKUS INH SCH ×2 (07:22→19:29)
[2019-04-21] MEDS: SPIRIVA INH SCH (07:22)
--- NOTE | 2019-04-21 09:17 | Diag Imaging Result Doc PS360 ---
CHEST-2 VIEWS - 04/21/2019 INDICATION: PTX LLL COMPARISON: 04/20/2019 FINDINGS: There is a stable moderate pneumothorax at the left lung base. No new infiltrates or new abnormalities. Stable severe COPD with pulmonary fibrosis. IMPRESSION: No change from prior. Electronically signed by Kamar Ferrera 04/21/2019 9:15 AM
[2019-04-21] MEDS: TRUSOPT 2% OPH SOLN LEFT EYE SCH ×2 (10:24→18:47)
[2019-04-21] MEDS: TIMOPTIC 0.5% OPH SOLUTION LEFT EYE SCH ×2 (10:24→18:47)
[2019-04-21] MEDS: SEPTRA DS PO SCH ×2 (10:26→21:17)
[2019-04-21] MEDS: CRESTOR PO SCH (10:26)
[2019-04-21] MEDS: CULTURELLE PO SCH (10:26)
[2019-04-21] MEDS: DIFLUCAN PO SCH (10:26)
[2019-04-21] MEDS: CARDIZEM CD PO SCH ×2 (10:27→21:17)
[2019-04-21] MEDS: FOLIC ACID PO SCH (21:17)
--- NOTE | 2019-04-21 21:32 | PROGRESS NOTE ---
DATE: 04/21/2019 INDICATION FOR PROLONGED HOSPITALIZATION: Ongoing medical surveillance of left-sided pneumothorax. He has now been off Eliquis for 2 doses not having received a dose last night or this morning. Awaiting pulmonology consultation as well as ongoing surgical opinion for chest tube placement. Chest x-ray obtained this morning shows no interval change in the appearance of left lower lobe and pneumothorax. We did discuss the possibility of chest tube placement on Thursday after the patient had been off Eliquis for 36 to 48 hours. He has no complaints or concerns. PHYSICAL EXAM: Vital signs: Vitals this morning blood pressure 108/77, pulse at 87, temperature at 97.9 degrees, saturating 98% on room air. HEENT: Is unremarkable. Cardiovascular: Irregularly irregular rhythm. Lungs: With decreased breath sounds throughout. Absent breath sounds in the left lower lobe posteriorly. Abdomen: Is benign. Extremities: Are benign. Neurological: Cranial nerves 2-12 are grossly intact. Patient is alert oriented x3 without any cognitive deficiencies. Telemetry strips showing atrial fibrillation with rate controlled response. X-RAY: Showing persistence of pneumothorax in the left lower lobe. No labs are ordered for today. IMPRESSION: An 87-year-old, with spontaneous pneumothorax of the left lower lung, previous history of bullous emphysema, recent hospitalization for Enterobacter pneumonia he continues on oral antibiotic as well as oral anti-yeast medicine. Since he is on Eliquis for atrial fibrillation, it is felt that the risk of hemorrhagic complications will be reduced with 36 to 48 hours off of anticoagulation. As of this dictation, the patient has not received 3 doses. It is now been 36 hours since his last dose of Eliquis. I anticipate potential chest tube placed on Thursday per general surgical service. Still awaiting pulmonology opinion. No new and/or additional recommendations at this time. Total time spent on the floor in discussion review of chest x-ray, and at the bedside approximately 30 minutes. cc: Tony Galindo DO
[2019-04-21] MEDS: XALATAN 0.005% OPH SOLN BOTH EYES SCH (22:24)
--- NOTE | 2019-04-22 00:38 | PULMONOLOGY CONSULTATION ---
DATE: 04/21/2019 REQUESTING PHYSICIAN: Dr. Tony Galindo. REASON FOR CONSULTATION: Pneumothorax. HISTORY OF PRESENT ILLNESS: Mr. Merchant is an 84-year-old white male with severe bullous emphysema, component of pulmonary fibrosis, prior asbestos exposure, history of bilateral pneumothoraces, who was recently admitted to the hospital from 04/08/2019 until 04/14/2019 with an Enterobacter cloacae complex and pneumonia involving the right lower lobe. The patient presented for followup in Dr. Galindo office and a chest x-ray was performed, which revealed a large left basilar pneumothorax. The patient has been admitted to the hospital and surgical consultation. The patient is not in extremis but does have dyspnea with ambulation. He currently is on anticoagulation, which has been held since admission. He reports his sputum production has resolved. PAST MEDICAL HISTORY: 1. History of bilateral pneumothoraces, as per above. 2. Chronic obstructive pulmonary disease with component of pulmonary fibrosis. 3. Asbestos exposure. 4. Glaucoma. 5. Atrial fibrillation. 6. Cataracts. 7. Status post cholecystectomy. 8. History of anemia with B12 deficiency. SOCIAL HISTORY: Prior, the patient has an 51-nhms-txyu history for tobacco, but has not smoked for several years. He does drink occasional beer. REVIEW OF SYSTEMS: Notable for shortness of breath on exertion, but otherwise negative. FAMILY HISTORY: Positive for lung cancer, coronary artery disease, and heart failure. PHYSICAL EXAMINATION: General: Reveals a well-developed, well-nourished male who actually appears younger than his stated age of 84. He is in no distress. Vital signs: BP 134/63, heart rate 64, respiratory rate 18, oxygen saturation 98% on 2 L per nasal cannula. HEENT: Pupils are equal and reactive. Oropharynx is clear. Neck: Supple. Chest: Reveals prolonged expiratory phase bilaterally with decreased sounds left base. Cardiac: S1, S2. Abdomen: Soft. Extremities: Without edema. LABORATORIES: Chest x-ray reveals moderate pneumothorax at the left lung base. IMPRESSION: An 84-year-old with severe bullous emphysema, severe chronic obstructive pulmonary disease with chronic hypoxemic respiratory failure, with a moderate size pneumothorax. The patient is on anticoagulation. He currently is in no distress. I agree with Surgery's plan to delay chest tube placement until Thursday to allow him time to metabolize his Eliquis. He might benefit from a small bore chest tube, but this may be not expand in the left lung if he has significant air leak. I will leave this to the discretion of Dr. Farias. PLAN: 1. Continue oxygen for hypoxemic respiratory failure. 2. Anticipate chest tube placement Thursday. cc: MD Tony Hartley, DO
--- NOTE | 2019-04-22 07:47 | Diag Imaging Result Doc PS360 ---
CHEST-2 VIEWS - 04/22/2019 INDICATION: PTX LLL COMPARISON: 04/21/2019 FINDINGS: There has been significant improvement in the left basilar pneumothorax. This now measures about 25%. Otherwise no change from prior. IMPRESSION: Significant improvement in the left basilar pneumothorax. Electronically signed by Kmaar Ferrera 04/22/2019 7:44 AM
[2019-04-22] MEDS: SPIRIVA INH SCH (07:56)
[2019-04-22] MEDS: ADVAIR 500/50 DISKUS INH SCH (07:57)
[2019-04-22] MEDS: CRESTOR PO SCH (09:24)
[2019-04-22] MEDS: DIFLUCAN PO SCH (09:24)
[2019-04-22] MEDS: FOLIC ACID PO SCH (09:24)
[2019-04-22] MEDS: CARDIZEM CD PO SCH (09:24)
[2019-04-22] MEDS: SEPTRA DS PO SCH (09:24)
[2019-04-22] MEDS: CULTURELLE PO SCH (09:24)
[2019-04-22] MEDS: TIMOPTIC 0.5% OPH SOLUTION LEFT EYE SCH ×2 (09:35→16:30)
[2019-04-22] MEDS: TRUSOPT 2% OPH SOLN LEFT EYE SCH ×2 (09:35→16:31)
--- NOTE | 2019-04-22 15:01 | PROGRESS NOTE ---
DATE: 04/22/2019 SUBJECTIVE: Mr. Miles Merchant, Sr. is an 84-year-old white male patient. He was admitted on 04/20/2019 with a left-sided pneumothorax. He has known emphysema and blebs involving both lungs. He has had a recent CT scan of his chest I think in December 2018 which documented these blebs. He has had history of chest tubes in the past. He was admitted with a left-sided pneumothorax mostly in the inferior aspect of the thorax. Dr. Ernie Farias initially was consulted. He was on Eliquis and it was felt that he was hemodynamically stable and we avoided placing a chest tube over the last 2 days because of his anticoagulation. Today's chest x-ray suggested improvement in the left-sided pneumothorax and he could take an easier full breath. So we decided against placing a left-sided chest tube at this time in hopes that this pneumothorax will become smaller and be reabsorbed without a chest tube. PLAN: He is going to remain hospitalized he is going to get another chest x-ray tomorrow morning. I spoke with the patient and Dr. Rajiv Galindo. Dr. Klever Qureshi is on for us this weekend. cc: MD Tony Ma, DO
[2019-04-22 17:04] VITALS: BP 113/63
--- NOTE | 2019-04-24 09:05 | DISCHARGE SUMMARY ---
ADMISSION DATE: 04/20/2019 DISCHARGE DATE: 04/22/2019 DISCHARGE DIAGNOSES: 1. Pneumothorax, left lower lobe, approximately 50% on admission. Intervally improved to approximately 25% at the time of discharge. No indication for surgical intervention with a chest tube. 2. Long-term use of Eliquis for atrial fibrillation, putting patient at a significant risk for hemorrhagic complications with chest tube placement, patient having been admitted to the hospital with 48 hours off of Eliquis and interval improvement in pneumothorax. No indication for CT scan of the chest. Patient is resumed back on Eliquis at the time of discharge. 3. Elevated white blood cell count, etiology queried. 4. Hyperglycemia without evidence of diabetes. Glucose ranging from 80 to 163. 5. Abnormal coagulation profile with elevated PT at 17.3, likely anticoagulant mediated. CONSULTATIONS DURING ADMISSION: Including general surgery for chest tube placement and pulmonology. 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 HOSPITAL COURSE: Patient was admitted on the after presenting for posthospital followup from recent admission, complaining of profound exertional shortness of breath. A chest x-ray was obtained based on shortness of breath out of proportion to exam and decreased breath sounds in the left lower lobe. He was found to have a significant pneumothorax. Based on his activity-limiting shortness of breath, it was felt best to admit him and consider chest tube placement. Pulmonology and general surgery were consulted. Based on patient's bleeding risk, conservative management/watchful waiting was recommended. Over the course of 48 hours while hospitalized, the pneumothorax appeared to be improving. Therefore, the patient was sent home with outpatient followup. No other issues at this time. The patient is discharged and resumed on all home medications for which he was admitted on. Eliquis was resumed at the previous dose of 5 mg twice daily. DISPOSITION: The patient is released with interval followup. Understands the course of treatment and plan. No further issues at this time. cc: Tony Galindo DO
== END 2019-04-22 17:11 | disposition home or self-care (01) | DRG 200 ==
LOC: DIRADM → OBSVTOIN 14:33 → 3N 14:38
PROVIDERS: ADMIT Internal Medicine; ATTEND Internal Medicine

== ENCOUNTER 2019-10-27 10:18 | Inpatient (IN) ==
[2019-10-27] MEDS ORDERED: DUONEB (A & A) INH ONE (10:56)
[2019-10-27] MEDS ORDERED: SOLU-MEDROL IV ONE (10:56)
--- NOTE | 2019-10-27 10:58 | Diag Imaging Result Doc PS360 ---
EXAM: CHEST-1 VIEW 10/27/2019 HISTORY: SOB TECHNIQUE: AP portable upright at 1043 COMMENT: There is marked fibrotic change in both lungs particularly in the apices and in the right middle lobe. There is a pneumothorax on the left which is principally evident in the base, which was not the case on 08/08/2019. There is worsened atelectasis in the left lower lobe as result. There our nodular opacities in the right apex and more inferiorly in the upper lobe which appears somewhat more prominent than on the previous studies. This may be technical. IMPRESSION: Severe bullous emphysema, pleural and parenchymal fibrosis and new left pneumothorax. The findings were discussed with Keenan Frazier MD at 10/27/2019 10:55 AM. Electronically signed by Jonathon Mckeon 10/27/2019 10:56 AM
[2019-10-27 10:59] LABS: BASO# 0.02 X1000 (0.0-0.2); BASO% 0.3 % (0.0-0.8); EOS% 1.3 % (0.0-10.0); HEMATOCRIT 53.1 % (42.0-52.0); LYMPH# 1.03 X1000 (1.2-3.4); LYMPH% 12.9 % (20.5-51.1); MCH 30.6 PG (27-31); MCHC 33.9 g/dL (33-37); MCV 90.3 FL (81-99); MONO# 1.34 X1000 (0.11-0.59); MONO% 16.8 % (1.7-9.3); MPV 11.2 FL (7.4-10.4); NEUT% 68.7 % (42.2-75.2); PLT 169 X1000 (130-400); RBC 5.88 XMIL (4.7-6.1); RDW 14.6 % (11.5-14.5); WBC 7.99 X1000 (4.8-10.8)
[2019-10-27 11:03] LABS: ALB/GLOB RATIO 1.8; ALBUMIN 4.1 g/dL (3.5-5.0); CALCIUM 9.5 mg/dL (8.8-10.2); CREATININE 1.2 mg/dL (0.7-1.2); INR 1.36; MAGNESIUM 1.7 mg/dL (1.5-2.7); POTASSIUM 4.3 mmol/L (3.5-5.1); TOTAL BILIRUBIN 1.45 mg/dL (0.20-1.00); TOTAL PROTEIN 6.4 g/dL (6.3-8.3)
[2019-10-27 11:04] LABS: PTT 39.5 Seconds (22.3-41.8)
--- NOTE | 2019-10-27 12:02 | PROVIDER DOCUMENTATION ---
This chart was entered by Ny Vincent Scribe, acting as scribe for Keenan Frazier MD. HPI-Respiratory General - General Chief Complaint: SEPSIS ALERT - D Stated Complaint: SOB Time Seen by Provider: 10/27/19 10:38 Source: patient, family Allergies/Adverse Reactions: Patient Allergies Allergy/AdvReac Type Severity Reaction Status Date / Time levofloxacin [From Levaquin] Allergy Unknown Verified 10/27/19 11:17 oxycodone Allergy Unknown Verified 10/27/19 11:17 tetanus toxoid, adsorbed Allergy Unknown Verified 10/27/19 11:17 Home Medications: Home Medication List Medication Instructions Recorded Confirmed Last Taken Type Dorzolamide 2% Oph Soln [Trusopt 1 drop LEFT EYE BID 11/30/15 10/27/19 04/20/19 08:00 History 2% Oph Soln] Latanoprost 0.005% Oph Soln 1 drop BOTH EYES HS 11/30/15 10/27/19 04/19/19 20:00 History [Xalatan 0.005% Oph Soln] Timolol 0.5% Oph Solution 1 drop LEFT EYE BID 11/30/15 10/27/19 04/20/19 08:00 History [Timoptic 0.5% Oph Solution] Apixaban [Eliquis] 5 mg PO BID 09/08/16 10/27/19 04/20/19 08:30 History Folic Acid 1 mg PO DAILY #30 tablet 09/15/16 10/27/19 04/19/19 20:30 Rx Tiotropium [place] Inhaler 1 puff INH RTDAILY #1 inhaler 11/16/17 10/27/19 04/20/19 09:00 Rx [Spiriva] 1 Diltiazem HCl [Cartia Xt] 120 mg PO BID 08/13/18 10/27/19 04/20/19 08:30 History Fluticasone/Salmeterol [Advair 1 puff IH BID 08/13/18 10/27/19 04/20/19 08:00 History 500-50 Diskus] 2 Albuterol Sulfate [Albuterol 2 puff INHALATION PRN PRN 04/08/19 10/27/19 Unknown History Sulfate Hfa] Rosuvastatin Calcium 10 mg PO QAM 04/08/19 10/27/1904/20/19 08:30 History - History of Present Illness-Resp Nature of Presenting Problem: 84 yowm presents to the ed with c/o worsening sob. pt saw pmd on thursday and was placed on Deconex and sts he was feeling better till this morning when he woke with productive cough and exertional sob. pt has hx of chest tubes due to pneumothorax and sts this feels similar. pt on exam is nontoxic in appearance Quality of Pain: reports: none Severity in ED: reports: moderate Onset/Duration: reports: 3 days ago Timing: reports: still present, intermittent, getting worse Context: reports: recent URI Cough Quality/Degree: reports: productive cough, sputum (white) Episode Frequency: frequent episodes Current Respiratory Medication Therapy: Initiated see nurses note Modifying Factors: improves with: oxygen, sitting upright. worse with: exerti on, coughing Associated Symptoms: reports: cough, shortness of breath, other (rib pain from cough). denies: chest pain/soreness, dizziness, fever/chills, headache, heart racing, wheezing Similar Symptoms Previously?: Yes Recently seen or treated by another doctor?: Yes (dr galindo pmd) Review of Systems - Adult - REVIEW OF SYSTEMS - ADULT Constitutional: reports: no symptoms reported Eyes: reports: no symptoms reported Ears, Nose, Mouth & Throat: reports: no symptoms reported Cardiovascular: denies: chest pain, edema Respiratory: reports: see HPI, cough, dyspnea on exertion, shortness of breath. denies: wheezing Gastrointestinal: denies: diarrhea, nausea, vomiting Genitourinary: reports: no symptoms reported Musculoskeletal: reports: see HPI, other (rib pain from cough). denies: back pain, neck pain Integumentary: reports: no symptoms reported Neurological: denies: dizziness/vertigo, headache/migraines Psychiatric: reports: no symptoms reported Endocrine: reports: no symptoms reported Hematologic/Lymphatic: reports: no symptoms reported Allergic/Immunologic: reports: no symptoms reported All Other Systems: Reviewed and Negative Past History - Adult - PAST MEDICAL HISTORY-ADULT Review of Records: reports: Old Records Reviewed, Nursing Assessment Review, Medications Reviewed, Social history reviewed & non-contributory. Major Childhood Illnesses: reports: denies history Cardiovascular: reports: A-Fib, CHF, HTN, hyperlipidemia Respiratory: reports: COPD Gastrointestinal: reports: denies history Genitourinary: reports: denies history Musculoskeletal: reports: denies history Neurological: reports: denies history Psychiatric: reports: denies history Endocrine/Immune: reports: denies history Other Conditions: reports: deaf/hard of hearing - PRIOR SURGERIES/PROCEDURES Surgical/Procedure History: reports: cholecystectomy, back/neck, other (chest tubes) - IMMUNIZATION STATUS Childhood Immunizations: See Nurse Assessment Flu Vaccine: See Nurse Assessment - FAMILY HISTORY Family History: reviewed, not pertinent - SOCIAL HISTORY Smoking: quit greater than 1 year Substance Use: alcohol Alcohol Use Frequency: twice a week Number of drinks per typical drinking period:: 3-4 drinks Living Situation: family Physical Exam-General - PHYSICAL EXAM-ADULT Initial Vital Signs Reviewed: Yes - CONSTITUTIONAL General Appearance: alert, mild distress - EYES Eyes: PERRL/EOMI, pink conjunctivae - HEAD, EARS, NOSE, MOUTH & THROAT HENMT: moist mucous membranes - NECK Neck: non-tender, full range of motion, supple, normal inspection - RESPIRATORY Respiratory: lungs clear, normal breath sounds, respiratory distress (mild), increased rate (23), other (productive cough with rib pain due to coughing) - CARDIOVASCULAR Cardiovascular: normal peripheral pulses, regular rate, rhythm - CHEST (BREASTS) Chest/Breast: deferred - GASTROINTESTINAL (ABDOMEN) Abdominal Exam: normal bowel sounds, non tender, soft - GENITOURINARY Male Genitalia: deferred Rectal Exam: deferred Hemoccult Exam: deferred - LYMPHATIC Lymphatic: no adenopathy - MUSCULOSKELETAL Back Exam: normal inspection, no CVA tenderness, no vertebral tenderness Extremity: normal range of motion, non-tender, normal gait, normal inspection - SKIN Integumentary: normal color, normal turgor, warm/dry - NEUROLOGIC Neurologic: grossly normal - PSYCHIATRIC Psych/Mental Status: normal mood/affect, normal thought content, normal thought process, oriented x 3 - HEART Score HEART Score: History: Slightly Suspicious HEART Score: ECG: Non-Specific Repolarization Disturbance/LBBB/PM HEART Score: Age: > or = 65 Years HEART Score: Risk Factors for Atherosclerotic Disease: 1 or 2 Risk Factors HEART Score: Troponin: < or = Normal Limit Total HEART Score:: 4 Progress - PLAN OF CARE/RESULTS Progress/Plan/Lab Results: Vital Signs - 8 hr 10/27/19 10:22 Temperature 97.9 F Pulse Rate 95 H Respiratory Rate 23 Blood Pressure 146/75 O2 Sat by Pulse Oximetry 94 L 10/27/19 10:35 Influenza Screen - Final Nasopharyngeal Laboratory Results - last 24 hr 10/27/19 10/27/19 10/27/19 10:38 10:38 10:38 WBC 7.99 RBC 5.88 Hgb 18.0 Hct 53.1 H MCV 90.3 MCH 30.6 MCHC 33.9 RDW Std Deviation 14.6 H Plt Count 169 MPV 11.2 H Neut % (Auto) 68.7 Lymph % (Auto) 12.9 L [place] % (Auto) 16.8 H Eos % (Auto) 1.3 Baso % (Auto) 0.3 Neut # (Auto) 5.50 Lymph # (Auto) 1.03 L [place] # (Auto) 1.34 H Eos # (Auto) 0.10 Baso # (Auto) 0.02 PT 17.0 H INR 1.36 PTT (Actin FS) 39.5 Sodium 138 Potassium 4.3 Chloride 103 Carbon Dioxide 19 L Anion Gap 16 BUN 16 Creatinine 1.2 Estimated GFR/1.73 m2 58 BUN/Creatinine Ratio 13 Glucose 129 H Calculated Osmolality 279 Calcium 9.5 Magnesium 1.7 Total Bilirubin 1.45 H AST 20 ALT 14 Alkaline Phosphatase 73 Creatine Kinase 94 Troponin T High Sens Total Protein 6.4 Albumin 4.1 Globulin 2.3 Albumin/Globulin Ratio 1.8 Plasma Lactate 10/27/19 10/27/19 10:38 11:00 WBC RBC Hgb Hct MCV MCH MCHC RDW Std Deviation Plt Count MPV Neut % (Auto) Lymph % (Auto) [place] % (Auto) Eos % (Auto) Baso % (Auto) Neut # (Auto) Lymph # (Auto) [place] # (Auto) Eos # (Auto) Baso # (Auto) PT INR PTT (Actin FS) Sodium Potassium Chloride Carbon Dioxide Anion Gap BUN Creatinine Estimated GFR/1.73 m2 BUN/Creatinine Ratio Glucose Calculated Osmolality Calcium Magnesium Total Bilirubin AST ALT Alkaline Phosphatase Creatine Kinase Troponin T High Sens 15 Total Protein Albumin Globulin Albumin/Globulin Ratio Plasma Lactate 1.7 Orders Category Date Time Status Cardiac Monitoring DIRECTED Care 10/27/19 10:37 Active IV Insertion ORDERED Care 10/27/19 10:37 Completed Notify MD of + Sepsis Screen NOW Care 10/27/19 10:37 Active Notify Physician As Ordered Care 10/27/19 10:37 Active CHEST-1 VIEW [RAD] Stat Exams 10/27/19 10:37 Completed BLOOD CULTURE [BLDCUL] Stat Lab 10/27/19 11:08 Received CBC WITH DIFF [HEME] Stat Lab 10/27/19 10:38 Completed CK PROFILE [SP CHEM] Stat Lab 10/27/19 10:38 Completed COMPREHENSIVE METABOLIC PANEL [CHEM] Stat Lab 10/27/19 10:38 Completed INFLUENZA SCREEN A/B Stat Lab 10/27/19 10:35 Completed LACTATE, PLASMA [CHEM] Lab 10/27/19 13:45 Uncollected LACTATE, PLASMA [CHEM] Lab 10/27/19 16:45 Uncollected LACTATE, PLASMA [CHEM] Q3H Lab 10/27/19 11:00 Completed MAGNESIUM [CHEM] Stat Lab 10/27/19 10:38 Completed PROTIME WITH INR [COAG] Stat Lab 10/27/19 10:38 Completed PTT [COAG] Stat Lab 10/27/19 10:38 Completed TROPONIN T HIGH SENSITIVITY Stat Lab 10/27/19 10:38 Completed URINALYSIS W/POSS RFLX CULT [URINALYSIS] Stat Lab 10/27/19 10:37 Uncollected Albuterol 2.5MG/Ipratrop 0.5MG [Duoneb (A & A)] Med 10/27/19 10:56 Discontinued 3 ml INH NOW ONE Methylprednisolone Sod Succ [Solu-Medrol] Med 10/27/19 10:56 Discontinued 125 mg IV NOW ONE Aerosol Treatments Routine Oth 10/27/19 10:57 Completed Aerosol Treatments Stat Oth 10/27/19 10:57 Completed Oxygen Device Stat Oth 10/27/19 10:37 Active Result Diagrams: 10/27/19 10:38 10/27/19 10:38 - REASSESSMENT Reassessment #1 Time Reassessed: 11:48 Status: unchanged (dr at bedside speaking with pt about poc) - XRAY 1 XRAY: Bilateral XRAY Study: Chest Impression: See EMR Report (EXAM: CHEST-1 VIEW 10/27/2019 HISTORY: SOB TECHNIQUE: AP portable upright at 1043 COMMENT: There is marked fibrotic change in both lungs particularly in the apices and in the right middle lobe. There is a pneumothorax on the left which is principally evident in the base, which was not the case on 08/08/2019. There is worsened atelectasis in the left lower lobe as result. There our nodular opacities in the right apex and more inferiorly in the upper lobe which appears somewhat more prominent than on the previous studies. This may be technical. IMPRESSION: Severe bullous emphysema, pleural and parenchymal fibrosis and new left pneumothorax. The findings were discussed with Keenan Frazier MD at 10/27/2019 10:55 AM. Electronically signed by Jonathon Mckeon 10/27/2019 10:56 AM 10/27/19 1056 Interpreting Physician: Jonathon Mckeon MD Dictated Date/Time: 10/27/19 1050 cc: Keenan Frazier MD; Tony Galindo DO) - CONSULTS/PCP/HOSPITALIST Notification #1 *Consult/PCP/Hospitalist*: dr galindo PMD Time Discussed: 11:07 (no chest tube now per pmd) Reason/Comments: consult sx Consult Disposition: Admit #2 Consult: dr gates smargie Time Discussed: 11:55 Reason/Comments: phone consult #3 Consult: dr negron Time Discussed: 11:56 Reason/Comments: phone consult Departure - Departure Date of Disposition Decision: 10/27/19 Time of Disposition Decision: 12:01 DIAGNOSIS: COPD exacerbation, Pneumothorax on left Disposition: ADMITTED INPATIENT 09 Certified Medical Emergency: Emergent Condition: Fair Referrals and Follow-Ups: Tony Galindo DO [Primary Care Provider] - - Critical Care Note This patient required my direct & personal management of CC.: Yes Total Time (mins): 39 Critical Care Statement: This patient required my direct personal management to treat or rule out processes, the absence of which, could potentiallly result in sudden, clinically significant life or limb threatening deterioration. Attestation - Physician/ SHORTY Attestation Patient care was provided by Advanced Practice Provider:: No The physician spent face to face time with patient:: Yes Advanced Practice Provider documentation review:: Supervising physician onsite and consulted in the evaluation and care of this patient. The physician did have a face to face encounter with the patient. This chart was documented by the indicated scribe, (Ny Vincent Scribe) and accurately reflects the services I performed and decisions made by me, Keenan Frazier MD, as attested by the provider's signature.
[2019-10-27] MEDS ORDERED: ZOFRAN IV PRN (12:04)
--- NOTE | 2019-10-27 15:35 | GENERAL SURGERY CONSULTATION ---
DATE: 10/27/2019 REQUESTING PHYSICIAN: Emergency Department. REASON FOR CONSULTATION: Recurrent pneumothorax. HISTORY OF PRESENT ILLNESS: 84-year-old gentleman with a history of blebs who came in with pneumothorax after being evaluated for shortness of breath. He has been seen by his primary care physician and continued to have shortness of breath and he went to the ER. Chest x-ray confirmed a left-sided pneumothorax. 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 The patient is not complaining of any kind of shortness of breath at the moment. No real chest pain. PAST MEDICAL HISTORY: History of pneumonia, atrial fib, hyperlipidemia, hypertension, history of pneumothorax. PAST SURGICAL HISTORY: Includes hemorrhoidectomy, right-sided pleurodesis. SOCIAL HISTORY: Former smoker. HOME MEDICATIONS: Reviewed. ALLERGIES: Levaquin, oxycodone, tetanus. REVIEW OF SYSTEMS: Full 14 systems reviewed and negative except those as specified in HPI. PHYSICAL EXAMINATION: Vital Signs: Patient is currently afebrile. His vital signs are stable. General: No acute distress. HEENT: Normocephalic, atraumatic. Pupils equal, round, reactive to light. Mucous membranes moist. Oropharynx benign. Neck: Supple. Trachea midline. Cardiovascular: Regular rate and rhythm. Lungs: Grossly clear. No increased labored breathing. Abdomen: Soft, nontender, nondistended. Extremities: Moves all extremities. Neurologic: Grossly intact. Skin: No signs of jaundice. Vascular: All extremities perfused. LABORATORY: Reviewed. Chest x-ray reviewed, small pneumothorax on the left side. ASSESSMENT/PLAN: 84-year-old gentleman with left-sided pneumothorax: Left-sided pneumothorax. At this time, given his history of blebs, I would like to try to hold off on a chest tube due to the fact that he is stable. If he does have any clinical deterioration, we will plan on placement of a chest tube, but at this time, we will just observe him. cc: MD Tony Lora, DO
[2019-10-27 15:38] LABS: URINE SOURCE CLEAN CATCH
[2019-10-27 15:44] LABS: BILIRUBIN URINE NEGATIVE (NEGATIVE); BLOOD URINE NEGATIVE (NEGATIVE); COLOR YELLOW; GLUCOSE URINE NEGATIVE (NEGATIVE); KETONE URINE NEGATIVE (NEGATIVE); LEUKOCYTES URINE NEGATIVE (NEGATIVE); NITRITE URINE NEGATIVE (NEGATIVE); PH URINE 5.5; PROTEIN URINE TRACE mg/dL (NEGATIVE); SP GRAVITY URINE 1.023; TURBIDITY URINE CLEAR (CLEAR); UROBILINOGEN URINE NORMAL (NORMAL)
[2019-10-27 15:46] LABS: UR EPITHELIAL CELLS <10 /HPF (<10); URINE BACTERIA NEGATIVE /HPF; URINE RBC <10 /HPF (<10); URINE WBC <10 /HPF (<10)
[2019-10-27 15:50] LABS: URINE CRYSTALS NONE SEEN
[2019-10-27] MEDS: DUONEB (A & A) INH SCH ×3 (16:02→23:01)
[2019-10-27] MEDS ORDERED: TESSALON PO PRN (18:35)
[2019-10-27] MEDS: ROBITUSSIN-AC PO PRN (19:21)
[2019-10-27] MEDS ORDERED: CODEINE PO SCH (20:00)
[2019-10-27] MEDS: ADVAIR 500/50 DISKUS INH SCH (20:10)
[2019-10-27] MEDS: CARDIZEM CD PO SCH (21:01)
[2019-10-27] MEDS: TIMOPTIC 0.5% OPH SOLUTION LEFT EYE SCH (21:01)
[2019-10-27] MEDS: ELIQUIS PO SCH (21:01)
[2019-10-27] MEDS: XALATAN 0.005% OPH SOLN BOTH EYES SCH (21:02)
[2019-10-27] MEDS: TRUSOPT 2% OPH SOLN LEFT EYE SCH (21:02)
[2019-10-27] MEDS ORDERED: CHLORASEPTIC SPRAY MT PRN (21:10)
--- NOTE | 2019-10-27 21:24 | PULMONOLOGY CONSULTATION ---
DATE: 10/27/2019 REASON FOR CONSULTATION: Pneumothorax. HISTORY OF PRESENT ILLNESS: Mr. Merchant is an 84-year-old, white male, who is followed in my clinic for severe COPD, chronic hypoxemic respiratory failure, and recurrent pneumothoraces. The patient had an incidental pneumothorax noted on a CT scan of the thorax on 06/20/2019, and he was followed with serial outpatient x-rays. This pneumothorax was on the right side. The patient felt well yesterday, but had significant dyspnea this morning and came to the emergency room. He was being treated for a head cold by Dr. Galindo, but did not have dyspnea which was different from his baseline. In the emergency room, a chest x-ray was performed which revealed a new left-sided pneumothorax. General Surgery has been consulted and he is being followed expectantly. PAST MEDICAL HISTORY/PROBLEM LIST: 1. Severe COPD with recurrent pneumothoraces. Most previous admission to the hospital with a pneumothorax was 04/21/2019. 2. Chronic obstructive pulmonary disease with a component of pulmonary fibrosis. 3. History of asbestos exposure. 4. Glaucoma. 5. Atrial fibrillation. 6. Status post cholecystectomy. 7. History of anemia with B12 deficiency. 8. History of cataract disease. 9. 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 SOCIAL HISTORY: The patient has an [id number] history for tobacco, but none for several years. He does have an occasional beer. FAMILY HISTORY: Positive for heart disease, heart failure, and lung cancer. REVIEW OF SYSTEMS: Primarily notable for shortness of breath which is now at rest. He also had a recent upper respiratory infection and continues to have a cough. PHYSICAL EXAMINATION: General: A thin white male who appears younger than his stated age of 84. He does become breathless when moving in the bed. Blood pressure 147/74, heart rate 92, respiratory rate 20, oxygen saturation 95% on 2 L per nasal cannula. HEENT: Pupils are equal and reactive. Oropharynx appears clear. Neck: Supple. Chest: Diminished breath sounds bilaterally with prolonged expiratory phase. He has occasional rhonchi bilaterally and deep breathing causes him to cough. Cardiac: S1-S2. Abdomen: Soft. Extremities: Without edema. LABORATORIES: White blood count 7.99, hemoglobin 18.0, platelet count 169,000. Sodium 138, potassium 4.3, chloride is 103, bicarbonate 19, BUN 16, creatinine 1.2. IMPRESSION: An 84-year-old with: 1. Severe chronic obstructive pulmonary disease. 2. New left-sided pneumothorax. 3. Dyspnea at rest. 4. Chronic hypoxemic respiratory failure. 5. Recent upper respiratory infection, being treated as a viral illness. PLAN: 1. Agree with hospitalization given comorbidities and dyspnea at rest. 2. Followup chest x-ray tomorrow. 3. Routine bronchodilators as ordered. 4. Serial chest x-rays with General Surgery following. 5. Repeat immunoglobulin level in the event he develops an infectious process. This will blanket winder helper in determining if he needs immunoglobulin replacement. cc: MD Tony Hartley, DO
[2019-10-28] MEDS: ROBITUSSIN-AC PO PRN ×2 (02:11→10:03)
[2019-10-28] MEDS: DUONEB (A & A) INH SCH ×6 (03:43→22:42)
--- NOTE | 2019-10-28 05:46 | HISTORY AND PHYSICAL ---
HISTORY OF PRESENT ILLNESS: Mr. Merchant is an 84-year-old gentleman with past medical history consistent with recurrent pneumothorax, impaired fasting glucose putting him at risk for diabetes, atherosclerotic coronary artery disease, BPH, bullous emphysema, COPD, chronic oxygen dependence, hypertension, dyslipidemia, atrial fibrillation, B12 and vitamin D deficiency who was last admitted to the hospital in March for left lower lobe pneumothorax, 50% on admission and in early March 2019 for pneumonia and IgG deficiency. He was seen in the Internal Medicine Clinic on Thursday of this week presenting with sickness. He states that he started out with some sore throat and sinus congestion with clear productive cough, low back pain, sneezing. He denied any fevers or chills. He states that he has not been around anybody that he has known of to be sick. He has been somewhat labored in his breathing, feeling okay on Thursday morning and then sudden onset of symptoms without headache, periodic sneezing and some hypoxia with ambulation from 94% to 88%. He was found to have a blood pressure of 150/80, saturating 92% on room air. Chest x-ray failed to demonstrate any evidence of abnormality, and he was subsequently placed on symptomatic medication including Deconex DM every 4 hours p.r.n. The daughter called back on Thursday stating that the patient was approximately 30% to 40% better, felt as if the medication was working in helping him bring stuff up. The patient and the daughter understand that this will be a long recovery. The patient is staying with the daughter, and he appears to be moving around better than the day he was seen in the clinic. She was advised that should he clinically decline or fail to improve to contact the Internal Medicine Clinic. The patient states that this morning he had a restless night and was up and agreed to feeling better yesterday, however, some shortness of breath. He got up this morning with acute onset of shortness of breath, notified his daughter and felt it was prudent to head to the emergency room. They were directed to the emergency room for further evaluation. In the emergency room, he is noted to have a new spontaneous pneumothorax. He is admitted for conservative therapy, general surgical pulmonology consultations. ALLERGIES: To Levaquin, tetanus and oxycodone. MEDICATIONS ON ADMISSION: Including Eliquis 5 mg b.i.d., ProAir HFA p.r.n., Crestor 10 mg once daily, Cardizem 120 mg b.i.d., Advair Diskus 500/50 one puff b.i.d., folic acid 1 mg p.o. daily, vitamin D 50,000 international units once weekly, Spiriva 18 mcg 1 puff once daily, latanoprost ophthalmic 1 drop in affected eye in the evening, Timolol maleate 1 drop in the left eye b.i.d., dorzolamide chloride 1 drop left eye b.i.d. FAMILY HISTORY: Father , 49, lung cancer. Mother , 77, heart issues. Brother , 56, lung cancer. Brother , 80, heart issues and lung cancer. SOCIAL STATUS: Patient is with 3 children 57, 56 and 54 with 4 grandchildren and 3 great- grandchildren. Patient's in 1994 after 35 years of marriage. He has been a for more than 24 years. 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 He has an 80+ pack year history but quit in 1994, and he drinks up to 11 beers per week. Patient has not been out of the country since traveling to [place] on an [place] cruise in 1974. REVIEW OF SYSTEMS: Unremarkable except that noted within the HPI. Patient's primary design studio consultant is Dr. Elliot Galindo. Patient's primary chiller technician is Dr. Emmanuel. HEALTH MAINTENANCE: Patient's last Prevnar shot 2014 at [facility]. Pneumococcal in 03/2010, up- to-date, viral influenza in June of 2019. Patient's last cardiac stress test in 2015. Cardiac catheterization is noted to be in [place] and remote. Last pulmonary function test in September of 2016. Last cardiac echocardiogram in March of 2019. Mild AR, EF at 55%, borderline left atrial enlargement. Pulmonary function test in September: FEV1 at 51% on 1.82 L. FVC at 3.58 L at 72%, FEF 25/75 0.39 L at 36%. PHYSICAL EXAMINATION: VITALS: As per chart HEENT: Normocephalic, atraumatic. Pupils are unremarkable. CARDIOVASCULAR: Irregularly irregular rhythm. LUNGS: With decreased breath sounds on the left posterior and left lower lobe. No wheezes or rhonchi are appreciated. ABDOMEN: Soft. EXTREMITIES: Benign. NEUROLOGICAL: Cranial nerves 2 through 12 are grossly intact. Patient is alert and oriented x3 without any cognitive deficiencies. LABORATORY DATA: As per chart. IMAGING: Radiological assessment in the emergency room consistent with a pneumothorax. This is new when compared to previous study/chest x-ray dated July of 2019. Likely a contributing, if not the sole source, of patient's shortness of breath. IMPRESSION: An 84-year-old with end-stage lung disease, history of pneumothoraces, bullous emphysema and chronic obstructive pulmonary disease presenting with acute dyspnea and abnormal radiological findings consistent with pneumothorax. The patient has previous history of same. Patient is to be admitted for surgical consideration likely to be conservative in nature. Pulmonology consultation with patient's primary chiller technician, antitussives to reduce risk of spontaneous rupture of emphysematous blebs with coughing spasm and ongoing pulmonary toilet. The patient understands the course of treatment and plan. No further issues at this time. Note is dictated on the evening of admission. Pulmonology is also aware of the patient's admission and has already been seen by the general surgeon. No further issues at this time. cc: Tony Galindo,
--- NOTE | 2019-10-28 05:58 | GENERAL SURGERY PROGRESS NOTE ---
DATE: 10/28/2019 SUBJECTIVE: Patient seems to be doing okay. He does get some shortness of breath when he walks, but denies any current chest pain. OBJECTIVE: Vital Signs: Patient is currently afebrile. His vital signs are stable. General: No acute distress. HEENT: Normocephalic, atraumatic. Pupils equal, round, and reactive to light. Mucous membranes moist. Oropharynx benign. Neck: Supple. Trachea midline. Cardiovascular: Regular rate and rhythm. Lungs: No increased labored breathing. Abdomen: Soft. Nontender. Nondistended. Extremities: Moves all extremities. Neurologic: Grossly intact. Skin: No signs of jaundice. Vascular: All extremities perfused. LABORATORY: None. DIAGNOSTIC: Chest x-ray pending. ASSESSMENT/PLAN: An 84-year-old gentleman with recurrent left-sided pneumothorax. Pneumothorax. At this time, he seems to be doing okay. Judging by the risks and benefit ratio, I think we should probably observe him. If he has any clinical deterioration, we will place a chest tube. We will follow up today with his chest x-ray. cc: MD Tony Lora, DO
--- NOTE | 2019-10-28 07:25 | Diag Imaging Result Doc PS360 ---
EXAM: CHEST-PORTABLE HISTORY: abnormal exam TECHNIQUE: Two views COMPARISON: 10/27/2019 FINDINGS: The lungs are hyperexpanded. There is a moderate-sized left-sided pneumothorax. This has not D increased in size. There are increased interstitial markings throughout both lungs believed to be fibrosis. No cardiomegaly. IMPRESSION: Severe emphysema and fibrosis with a moderate-sized left-sided pneumothorax. No improvement. Electronically signed by Cesar Peña 10/28/2019 7:23 AM
--- NOTE | 2019-10-28 07:34 | EKG Report ---
Test Performed on : 10/28/2019 07:20:56 AM Test Reason : afib/cough Blood Pressure : / mmHG Vent. Rate : 127 BPM Atrial Rate : 127 BPM P-R Int : 000 ms QRS Dur : 074 ms QT Int : 288 ms P-R-T Axes : 000 -84 074 degrees QTc Int : 418 ms Atrial fibrillation. with rapid ventricular response. 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 rate has increased BY 49 BPM Confirmed by Obed GRAVES, Manuel Cabral ([id number]) on 10/30/2019 9:24:26 AM
[2019-10-28] MEDS: ADVAIR 500/50 DISKUS INH SCH ×2 (08:05→20:11)
[2019-10-28] MEDS: SPIRIVA INH SCH (08:06)
[2019-10-28] MEDS: ZITHROMAX 500 MG/NS 500 MG/250 ML IVPB IV SCH (08:31)
[2019-10-28] MEDS: SOLU-MEDROL IV SCH ×4 (08:34→23:08)
[2019-10-28] MEDS: LANOXIN IV SCH ×3 (08:35→21:19)
[2019-10-28] MEDS: MUCINEX PO SCH ×2 (08:37→21:17)
[2019-10-28] MEDS: CRESTOR PO SCH (08:37)
[2019-10-28] MEDS: CARDIZEM CD PO SCH ×2 (08:38→21:18)
[2019-10-28] MEDS: ELIQUIS PO SCH ×2 (08:38→21:18)
[2019-10-28] MEDS: TIMOPTIC 0.5% OPH SOLUTION LEFT EYE SCH ×2 (08:39→21:16)
[2019-10-28] MEDS: TRUSOPT 2% OPH SOLN LEFT EYE SCH ×2 (08:43→21:17)
[2019-10-28] MEDS: D5 NS 1,000 ML IV SCH (08:45)
[2019-10-28] MEDS ORDERED: FOLIC ACID PO SCH (09:00)
[2019-10-28] MEDS ORDERED: ZITHROMAX PO SCH (09:00)
[2019-10-28] MEDS ORDERED: LASIX IV ONE (14:57)
[2019-10-28 15:22] LABS: ALLEN TEST YES; BE -4.9 mmoll (-3.0-3.0); BLOOD TYPE ARTERIAL; METHB 1.2 % (0.0-1.5); O2(CT) 23.4 mL/dL (15.0-23.0); O2HB 93.6 % (95.0-99.0); PCO2(98.6) 39 mmHg (35-45); PO2(98.6) 73 mmHg (60-100); SAMPLE BLOOD; SAO2 96.8 % (95.0-100.0); THB 17.8 g/dL (11.5-17.4); pH(98.6) 7.33 (7.35-7.45)
[2019-10-28 15:24] LABS: MODALITY CANNULA
--- NOTE | 2019-10-28 15:32 | PROGRESS NOTE ---
DATE: 10/28/2019 HOSPITAL DAY 2: INDICATION: For prolonged hospitalization, conservative/serial measurement of spontaneous pneumothorax involving the left hemithorax, concern for interval progression based on clinical condition. Patient was seen this morning and felt that he would benefit from obtaining some better rate control with regards to his atrial fibrillation with RVR. Certainly this could be contributing to his shortness of breath. The chest x-ray from this morning failed to demonstrate any evidence of improvement of the pneumothorax and Surgery had been consulted yesterday for possible placement of a chest tube. This evening on afternoon rounds, he is noted to be more tachypneic, using accessory muscles and stating that his breathing is getting worse. We will be obtaining a stat chest x-ray as well as ABG and placing a Goins with 80 of Christiano. I have also spoken with Dr. Shipman with regards to placement of a chest tube. This might be somewhat problematic in that he has been on anticoagulant, specifically Eliquis, for atrial fibrillation. Laboratory obtained last night not included in the H P: White blood cell count 7.99, H H of 18.0 and 53.1 with 169,000 platelets. PT/INR noted to be 17 and 1.36. Sodium at 138, potassium at 4.3, chloride at 103, bicarb at 19, BUN and creatinine at 16 and 1.2, AST and ALT at 20 and 14. Urine with trace protein. EKG this morning demonstrating atrial fibrillation with RVR and a leftward axis. No previous EKG is readily available for a comparison. PHYSICAL EXAMINATION: At the bedside at this time.HEENT: Unremarkable. Cardiovascular: Tachycardic with irregularly regular rhythm. Lungs: With evidence of progressive hyper resonance in the left posterior chest up to about mid level. Some nonspecific crackles are noted on the right hemithorax, both upper and lower, and upper airway stridor at the level of the larynx is also noted. Abdomen: Soft. Extremities: Benign without clubbing, cyanosis, or edema. Neurological: Cranial nerves 2-12 are grossly intact. Patient is alert and oriented x3 but complaining of increasing respiratory difficulty. IMPRESSION: An 89-year-old with bullous emphysema with previous history of spontaneous pneumothorax requiring chest tube placement and most recently this past summer. Spontaneous pneumothorax which was clinically stable and self-limited resolving with conservative therapy. This is a new event on the left side which is a new finding. He does not appear to be tolerating this pneumothorax as well as he has the one this past summer. He does brisk acutely decompensating and requiring further ventilatory support. We will be obtaining, as stated above, a stat chest x-ray and ABG as well as placing a Goins followed by 80 mg of IV Lasix and interval reassessment to see if this improves his breathing. I am concerned with him being on Eliquis that placement of chest tube might be problematic and result in untoward complications such as a hemorrhage. I have notified General Surgery to be available for chest tube placement should there not be any significant improvement in his respiratory status either with aggressive diuresis and/or ongoing conservative support. CURRENT VITAL SIGNS: Blood pressure 150/87, pulse at 77, temperature at 97.8 degrees. I'S AND O'S: Since admission 946 in and 400 out for +540. RECOMMENDATIONS: No new and/or additional recommendations at this time. It is 3:10 and Radiology is at the bedside at this time. cc: Tony Galindo DO
--- NOTE | 2019-10-28 15:32 | Diag Imaging Result Doc PS360 ---
EXAM: CHEST-PORTABLE INDICATION: worsening shortness of breath TECHNIQUE: 2 views COMPARISON: 10/28/2019 FINDINGS: There is a known left-sided pneumothorax. The pneumothorax is probably modestly larger than the previous study. It occupies up to 30-40% of the left hemithorax. Extensive fibrotic change and COPD is again noted. No new consolidation is identified. Cardiac silhouette is stable. IMPRESSION: Modest increase in size of the left pneumothorax. The findings were discussed with Tony Galindo DO at 10/28/2019 3:29 PM and was acknowledged. Electronically signed by Jaylen Gates 10/28/2019 3:29 PM
--- NOTE | 2019-10-28 16:01 | Diag Imaging Result Doc PS360 ---
EXAM: CHEST-PORTABLE INDICATION: chest tube placement TECHNIQUE: One view COMPARISON: 10/28/2019 FINDINGS: During the short interval, there has been placement of a small bore chest tube on the left. Since placement of the chest tube, there has been a significant improvement of the pneumothorax. However, it still occupies about 15-20% of the left hemithorax. There is better aeration of the left lung. The right lung is unchanged. IMPRESSION: Interval placement of left chest tube as described with resulting improvement of left pneumothorax. Electronically signed by Jaylen Gates 10/28/2019 3:59 PM
[2019-10-28 16:44] LABS: URINE SOURCE CATH
[2019-10-28 16:47] LABS: BILIRUBIN URINE NEGATIVE (NEGATIVE); BLOOD URINE NEGATIVE (NEGATIVE); COLOR YELLOW; GLUCOSE URINE NEGATIVE (NEGATIVE); KETONE URINE NEGATIVE (NEGATIVE); LEUKOCYTES URINE NEGATIVE (NEGATIVE); NITRITE URINE NEGATIVE (NEGATIVE); PROTEIN URINE TRACE mg/dL (NEGATIVE); SP GRAVITY URINE 1.021; TURBIDITY URINE CLEAR (CLEAR); UROBILINOGEN URINE NORMAL (NORMAL)
[2019-10-28 16:48] LABS: UR EPITHELIAL CELLS <10 /HPF (<10); URINE BACTERIA NEGATIVE /HPF; URINE RBC <10 /HPF (<10); URINE WBC <10 /HPF (<10)
[2019-10-28] MEDS: NORCO-7.5 PO PRN ×2 (16:52→23:34)
--- NOTE | 2019-10-28 18:29 | PROVIDER PROGRESS NOTE ---
Progress Note Dr. Hanna Progress Note/Pulmonary and or critical care We appreciated progress of care, Complications, change in diagnosis, and instructions to patient. Subjective: We note the level of consciousness, bed (chair) position, family presence (if any), level of lethargy, feeling of symptoms, and changes from baseline condition/symptom. The patient is lying in bed with moderate respiratory distress noted. He is on NC 3L with constant dry cough. He has mild audible expiratory rattle noise, some mild tachypnea and SOB at rest with increased work of breathing, but no accessory muscle use noted. He is complaining of sore throat that started yesterday. He states he is still able to eat and drink at this time. Objective: Vital Signs: We reviewed EMR current values for Pulse rate, Blood pressure, Pulse rate, respiratory rate and Pulse oximetry. Also noted other values and trends if present (e.g. I/O, CVP). T 97.8, ND 77, RR 20, BP 150/87 and SaO2 97% on NC 3 L. Physical Examination: General: Moderate respiratory distress with SOB at rest and mild tachypnea. Having constant dry cough. HEENT: Atraumatic. Normocephalic. Trachea midline. Mucus pink and slightly dry. Some dryness and erythema at the back of the throat noted. Chest: Mild tachypnea. Audible expiratory rattle noise. SOB at rest. Increased work of breathing, but no accessory muscle use. Symmetrical excursion. Auscultation reveals diminished breathing sounds on the left side of the lung and prolonged expiratory phase. CVS: S1 and S2 noted. Abdomen: Soft. Bowel sounds present. Nondistended. Nontender. Extremities: No pedal edema. No cyanosis. No clubbing. Neuro: A/O x3. Speech fluent. Follow commands. Labs and Radiology: Reviewed available labs and radiology values available at time of EMR review. Laboratory Results 10/28/19 10/28/19 10/28/19 07:06 15:20 16:40 Specimen Type ARTERIAL Sample Site R RADIAL pH 7.33 L pCO2 39 pO2 73 HCO3 21.0 Base Excess -4.9 L Oxyhemoglobin 93.6 L ABG O2 Sat (Calculated) 23.4 H ABG O2 Saturation 96.8 ABG Carboxyhemoglobin 2.10 ABG Methemoglobin 1.2 Gopal Test YES A-a O2 Difference 106.0 Total Hemoglobin 17.8 H Lactate 2.10 Liter Flow 3.0 Blood Gas Modality CANNULA FiO2 % 32.0 Urine Source CATH Urine Color YELLOW Urine Turbidity CLEAR Urine pH 5.0 Ur Specific [place] 1.021 Urine Protein TRACE A Ur Glucose (Stick) NEGATIVE Ur Ketones (Stick) NEGATIVE Urine Blood NEGATIVE Urine Nitrite NEGATIVE Urine Bilirubin NEGATIVE Urobilinogen Dipstick NORMAL Urine Leukocytes NEGATIVE Urine WBC (Auto) <10 Urine RBC (Auto) <10 U Epithel Cells (Auto) <10 Urine Bacteria (Auto) NEGATIVE Immunoglobulins G,A,M SEE COMMENTS Assessment: Severe COPD New left-sided pneumothorax. Surgeon on board. Dyspnea at rest. Chronic hypoxemic respiratory failure. Recent upper respiratory infection, being treated as a viral illness. Plan: Continue current treatment and supportive care per admitting and other teams on the case. Supplemental oxygen titrated to patients needs. Bronchodilators. Cough meds prn. Follow up with CXR and serum immunoglobulin level. Chest tube placement planning. Input was appreciated from Admitting MD and other teams on the case.
--- NOTE | 2019-10-28 19:38 | OPERATIVE NOTE ---
PROCEDURE DATE: 10/28/2019 PREOP DIAGNOSIS: Left-sided pneumothorax, enlarging in size. POSTOPERATIVE DIAGNOSIS: Left-sided pneumothorax, enlarging in size. PROCEDURE: Left chest tube placement (8-[place] chest tube). SURGEON: Walt Shipman MD. NEURODIAGNOSTIC TECH: None. ANESTHESIA: Local administered by the surgeon. FINDINGS: Good air release and some improvement in symptoms. 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 Initially we were going to admit him to watch him, but he had worsening symptoms, and it was felt he would benefit from a chest tube. The risks, benefits, and alternatives were discussed and all questions answered. DESCRIPTION OF PROCEDURE: After informed consent was obtained, the patient remained in his bed. His left chest was prepped and draped in sterile fashion. After a time-out, we used local anesthetic to anesthetize the skin. In the 5th intercostal space, I made a small stab incision and directed the tube to the pleural cavity, aspirated air, threaded the chest tube in, and connected to suction. There was bubbling and return of air. We secured it in the standard fashion. At time of dictation, a chest x-ray is pending, but the patient tolerated the procedure well and said he had some improvement in his symptoms. cc: MD Tony Lora,
[2019-10-28] MEDS: FOLIC ACID PO SCH (21:18)
[2019-10-28] MEDS: XALATAN 0.005% OPH SOLN BOTH EYES SCH (21:19)
[2019-10-29] MEDS: LANOXIN IV SCH (02:47)
[2019-10-29] MEDS: DUONEB (A & A) INH SCH ×6 (03:48→23:06)
[2019-10-29] MEDS: ZITHROMAX 500 MG/NS 500 MG/250 ML IVPB IV SCH (07:47)
[2019-10-29] MEDS: SOLU-MEDROL IV SCH ×3 (07:51→21:02)
[2019-10-29] MEDS: ADVAIR 500/50 DISKUS INH SCH ×2 (07:53→20:14)
[2019-10-29] MEDS: SPIRIVA INH SCH (07:54)
[2019-10-29] MEDS: D5 NS 1,000 ML IV SCH ×2 (08:35→14:38)
--- NOTE | 2019-10-29 10:08 | Diag Imaging Result Doc PS360 ---
EXAM: CHEST-2 VIEWS INDICATION: Left sided PTX TECHNIQUE: 3 views COMPARISON: 10/28/2019 FINDINGS: The left chest tube is in stable position. The left-sided pneumothorax has continued to decrease in size. It probably occupies around 10% of the left hemithorax and is seen mainly near the left lung apex. No new consolidations are identified. Cardiac silhouette is stable. IMPRESSION: Continued decrease in size of the left-sided pneumothorax. Electronically signed by Jaylen Gates 10/29/2019 10:06 AM
[2019-10-29] MEDS: MUCINEX PO SCH ×2 (10:27→21:02)
[2019-10-29] MEDS: TIMOPTIC 0.5% OPH SOLUTION LEFT EYE SCH ×2 (10:27→21:02)
[2019-10-29] MEDS: TRUSOPT 2% OPH SOLN LEFT EYE SCH ×2 (10:27→21:01)
[2019-10-29] MEDS: CARDIZEM CD PO SCH ×2 (10:28→21:02)
[2019-10-29] MEDS: ELIQUIS PO SCH ×2 (10:28→21:02)
[2019-10-29] MEDS: CRESTOR PO SCH (10:28)
[2019-10-29] MEDS ORDERED: G.I. COCKTAIL PO ONE (12:50)
[2019-10-29] MEDS ORDERED: THORAZINE 25 MG in NS 25 ML IV PRN (12:50)
--- NOTE | 2019-10-29 13:08 | GENERAL SURGERY PROGRESS NOTE ---
DATE: 10/29/2019 Mr. Merchant feels better today after the chest tube was placed yesterday. I see no air leak today in his Pleur-Evac. His chest x-ray shows almost complete resolution of his pneumothorax with only a small residual apical pneumothorax. PLAN: The plan will be to stop the suction on his chest tube, leaving the water seal and see if his chest x-ray remains stable tomorrow. cc: MD Tony Coburn, DO
--- NOTE | 2019-10-29 13:24 | PROVIDER PROGRESS NOTE ---
Progress Note Dr. Hanna Progress Note/Pulmonary and or critical care We appreciated progress of care, Complications, change in diagnosis, and instructions to patient. Subjective: We note the level of consciousness, bed (chair) position, family presence (if any), level of lethargy, feeling of symptoms, and changes from baseline condition/symptom. The patient is lying in bed with no acute distress noted. He is on NC 3L with no cough noted during my encounter. He states he is feeling a lot better. Dr. Shipman put a 8-[place] left chest tube in yesterday and chest x ray this am show continued decrease in size of the left-sided pneumothorax. Patient still complains of sore throat which is actually getting better, but still very irritating. He reports no pain at this time. Objective: Vital Signs: We reviewed EMR current values for Pulse rate, Blood pressure, Pulse rate, respiratory rate and Pulse oximetry. Also noted other values and trends if present (e.g. I/O, CVP). T 97.4, NC 68, RR 24, BP 152/77 and SaO2 94% on NC 3 L. Physical Examination: General: Moderate respiratory distress with SOB at rest and mild tachypnea. Having constant dry cough. HEENT: Atraumatic. Normocephalic. Trachea midline. Mucus pink and slightly dry. Some dryness and erythema at the back of the throat noted. Chest: Mild tachypnea. Symmetrical excursion. Auscultation reveals diminished breathing sounds bilaterally. Left-sided chest tube in place. CVS: S1 and S2 noted. Abdomen: Soft. Bowel sounds present. Nondistended. Nontender. Extremities: No pedal edema. No cyanosis. No clubbing. Neuro: A/O x3. Speech fluent. Follow commands. Labs and Radiology: Reviewed available labs and radiology values available at time of EMR review. Assessment: Severe COPD New left-sided pneumothorax. Surgeon on board. Chest tube placement on 10/28/19. Dyspnea at rest. Improving. Chronic hypoxemic respiratory failure. Recent upper respiratory infection, being treated as a viral illness. Plan: Continue current treatment and supportive care per admitting and other teams on the case. Supplemental oxygen titrated to patients needs. Bronchodilators. Cough meds prn. Antibiotic (Azithromycin). Solu-Medrol. Input was appreciated from Admitting MD and other teams on the case.
--- NOTE | 2019-10-29 14:12 | PROGRESS NOTE ---
DATE: 10/29/2019 INDICATIONS FOR PROLONGED HOSPITALIZATION: Surgical intervention with placement of a chest tube on 10/28/2019 for acute respiratory failure secondary to pneumothorax at 40%, interval placement of chest tube demonstrating marked improvement in pneumothorax decreasing from 40% to 10% by plain chest radiography. The patient continues to have atrial fibrillation as well, continues on anticoagulant, as well as chronotropic agent, specifically Cardizem, 1 mg of digoxin loaded over 24 hours not particularly helpful at controlling his rate. Patient continues of complaining of cough and some upper airway soreness and difficulty swallowing. INTAKE AND OUTPUT AT THE TIME OF EXAM: Blood pressure 152/77, respirations at 24, pulse at 68, temperature at 97.4 degrees, saturating 94% on 3 L. Intake and output, patient is 3,188 in and 3,000 out for +188 mL cumulatively for the hospitalization he is down 512 mL. No laboratory for this morning is available for review. Admission immunoglobulin status, IgA at 386, IgG at 520 and IgM at 40. Historically, most recent immunoglobulins in March 2019, baseline status IgA at 536 an IgG at 414 and IgM at 38. Post transfusion of IgG, IgA at 500, IgG at 846 and IgM at 42. Blood cultures to date are noted to be negative. PHYSICAL EXAMINATION: General: Patient continues with some mild respiratory difficulty with tachypnea. He states that he has developed a case of hick-ups and had difficulty swallowing this morning. He continues with a cough. Sore throat seemed to improve but is persistent. HEENT: Limited is unremarkable. Cardiorespiratory: Irregularly, irregular rhythm. Breath sounds appreciated on the right without wheezes, rhonchi or rales. The left with decreased respirations but improved from yesterday's exam. There are no crackles, rhonchi. Upper respiratory with some intermittent laryngeal stridor this appears in the interval to be improved as well. Abdomen: Somewhat protuberant with hyperactive and gaseous bowel sounds. Extremities: Benign. Neurological: Cranial nerves 2-12 are grossly intact. Patient is alert and oriented x3 without any cognitive deficiencies. DATA: Telemetry strips dated 10/28/2019 and 10/29/2019 are reviewed. He continues with atrial fibrillation with RVR. Occasional PACs are noted. EKG is anticipated for 10/30/2019. Laboratory is anticipated for 10/30/2019. IMPRESSION: 84-year-old with acute respiratory decline secondary to spontaneous pneumothorax on the left, day #2 status post chest tube insertion with marked improvement in respiratory status with decreasing pneumothorax from 40% to 10%. Patient continues with ongoing complaints of respiratory difficulty it is difficult to determine whether this is primarily lung mediated or secondarily atrial fibrillation with RVR mediated. He is currently on negative chronotropic agent at 120 mg of Cardizem b.i.d. Consideration for increasing the Cardizem to 180 b.i.d. is entertained. We will be asking Cardiology for an opinion; perhaps the addition of beta maddison, concern for exacerbation of hypotension and/or constipation versus exacerbation of esophageal dysmotility as it relates to increasing calcium channel maddison is considered as well. 1. Atrial fibrillation with RVR. Currently on calcium channel maddison. Options include increasing dose, adding a second agent and/or watchful waiting. We will be seeking the opinion of Cardiology in this regard. He continues on Eliquis as anticoagulant. 2. 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 The patient having been admitted for increasing shortness of breath and found to have a pneumothorax on the left, status post chest tube placement day #2. Marked improvement. Patient continues to be hemodynamically stable. Chest x-ray failing to demonstrate overt congestive failure, pleural effusions or consolidation. 3. Dysphagia, etiology queried. Patient reporting recent onset of dysphagia with pills and ongoing dysphagia with swallowing. Consider judicious use of oropharyngeal anesthetic as a means of temporary relief. We discussed the possibility of a swallowing study, perhaps as soon as Thursday. Last CT scan of the chest noted to be in May without issues related to esophageal thickening, hiatal hernia, or other GI related issues. Patient is at high risk for elective endoscopy secondary to cardiac and pulmonary concerns. I do think that starting with a barium swallow on Thursday may be reasonable. DISPOSITION: The patient understands the course of treatment and plan. No further issues at this time. Note is dictated on the afternoon of rounds. cc: Tony Galindo DO
[2019-10-29] MEDS: FOLIC ACID PO SCH (21:02)
[2019-10-29] MEDS: XALATAN 0.005% OPH SOLN BOTH EYES SCH (21:06)
[2019-10-30] MEDS: DUONEB (A & A) INH SCH ×7 (03:00→23:45)
[2019-10-30] MEDS: D5 NS 1,000 ML IV SCH ×2 (04:15→17:29)
--- NOTE | 2019-10-30 07:09 | GENERAL SURGERY PROGRESS NOTE ---
DATE: 10/30/2019 Mr. Merchant shows no air leak. His chest x-ray this morning is pending. If his chest x-ray shows no worsening, then perhaps we can get his chest tube out by tomorrow. cc: MD Tony Coburn, DO
[2019-10-30] MEDS: SOLU-MEDROL IV SCH ×4 (07:57→23:16)
[2019-10-30] MEDS: MUCINEX PO SCH ×2 (08:05→20:32)
[2019-10-30] MEDS: ZITHROMAX 500 MG/NS 500 MG/250 ML IVPB IV SCH (08:05)
[2019-10-30] MEDS: CARDIZEM CD PO SCH ×2 (08:06→20:32)
[2019-10-30] MEDS: ELIQUIS PO SCH ×2 (08:06→20:32)
[2019-10-30] MEDS: CRESTOR PO SCH (08:06)
[2019-10-30] MEDS: TIMOPTIC 0.5% OPH SOLUTION LEFT EYE SCH ×2 (08:07→20:33)
[2019-10-30] MEDS: TRUSOPT 2% OPH SOLN LEFT EYE SCH ×2 (08:07→20:33)
[2019-10-30 08:16] LABS: BASO# 0.01 X1000 (0.0-0.2); BASO% 0.1 % (0.0-0.8); HEMATOCRIT 48.1 % (42.0-52.0); HEMOGLOBIN 15.9 g/dL (14.0-18.0); LYMPH# 0.37 X1000 (1.2-3.4); LYMPH% 3.4 % (20.5-51.1); MCH 30.1 PG (27-31); MCHC 33.1 g/dL (33-37); MCV 91.1 FL (81-99); MONO# 0.43 X1000 (0.11-0.59); MONO% 3.9 % (1.7-9.3); MPV 10.6 FL (7.4-10.4); NEUT# 10.18 X1000 (1.4-6.5); NEUT% 92.6 % (42.2-75.2); PLT 169 X1000 (130-400); RBC 5.28 XMIL (4.7-6.1); WBC 10.99 X1000 (4.8-10.8)
[2019-10-30] MEDS: SPIRIVA INH SCH (08:21)
[2019-10-30] MEDS: ADVAIR 500/50 DISKUS INH SCH ×2 (08:21→19:38)
[2019-10-30 08:22] LABS: AGAP 9; ALB/GLOB RATIO 1.3; ALBUMIN 3.3 g/dL (3.5-5.0); ALKALINE PHOSPHATASE 49 U/L (32-122); BUN 21 mg/dL (8-22); CALCIUM 8.8 mg/dL (8.8-10.2); CHLORIDE 105 mmol/L (98-107); COSMO 287; CREATININE 0.9 mg/dL (0.7-1.2); ESTIMATED GFR > 60; GLUCOSE 176 mg/dL (70-104); GOT 26 U/L (10-34); GPT 24 U/L (10-44); MAGNESIUM 2.2 mg/dL (1.5-2.7); PHOSPHORUS 2.2 mg/dL (2.7-4.5); POTASSIUM 4.3 mmol/L (3.5-5.1); SODIUM 140 mmol/L (136-145); TCO2 26 mmol/L (25-35); TOTAL BILIRUBIN 0.79 mg/dL (0.20-1.00); TOTAL PROTEIN 5.8 g/dL (6.3-8.3)
[2019-10-30] MEDS ORDERED: MUCOMYST 20% INH ONE ×2 (09:27→11:54)
[2019-10-30] MEDS ORDERED: LASIX IV ONE (09:30)
[2019-10-30] MEDS ORDERED: ZOSYN 3.375 GM in NS 50 ML IV ONE (09:31)
--- NOTE | 2019-10-30 09:38 | EKG Report ---
Test Performed on : 10/30/2019 06:09:48 AM Test Reason : Afib Blood Pressure : / mmHG Vent. Rate : 089 BPM Atrial Rate : 129 BPM P-R Int : 000 ms QRS Dur : 086 ms QT Int : 366 ms P-R-T Axes : 000 -73 008 degrees QTc Int : 445 ms Atrial fibrillation. 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
--- NOTE | 2019-10-30 10:04 | Diag Imaging Result Doc PS360 ---
EXAM: CHEST-PORTABLE INDICATION: worsening SOB with PTX TECHNIQUE: 2 views COMPARISON: 10/29/2019 FINDINGS: The small bore left chest tube is in approximately stable position. As the previous study, the left-sided pneumothorax has increased in size. It now appears to occupy about 20-30% of the left hemithorax. There is a small amount of subcutaneous gas overlying the left chest wall. Otherwise, the chest is essentially stable. IMPRESSION: Interval increase in size of the left-sided pneumothorax as described. Electronically signed by Jaylen Gates 10/30/2019 10:01 AM
[2019-10-30 10:23] LABS: ALLEN TEST YES; BE -0.8 mmoll (-3.0-3.0); BLOOD TYPE ARTERIAL; HCO3-(ACT) 24.3 mmoll (20.0-26.0); METHB 0.8 % (0.0-1.5); MODALITY VENTIMASK; O2HB 96.9 % (95.0-99.0); PCO2(98.6) 46 mmHg (35-45); PO2(98.6) 144 mmHg (60-100); SAMPLE BLOOD; THB 17.5 g/dL (11.5-17.4); pH(98.6) 7.35 (7.35-7.45)
--- NOTE | 2019-10-30 11:10 | PROGRESS NOTE ---
DATE: 10/30/2019 INDICATION FOR PROLONGED HOSPITALIZATION: Ongoing medical management for spontaneous left-sided pneumothorax, status post chest tube placement with ongoing indwelling chest tube. EVENTS OVER THE PAST 24 HOURS: The patient describes a fair night of rest. However, this morning when I am at the bedside, he is leaning over the side of the bedside, tachypneic, using accessory muscles, stating that he has become acutely short of breath. His exam would suggest fluid overload. A stat chest x-ray is obtained, demonstrating interstitial markings in the right, and no significant change in the left. No new focal areas of consolidation or mass. He reports ongoing issues with chest congestion and feeling as if he has something in the center of his chest. OBJECTIVE: Vital Signs: Blood pressure 125/86, respirations 18, temperature at 98.5 degrees, T- max at 98.5 degrees, saturating 96% on room air. I's and O's show 3.8 L in and 1 L out for +2.8 L. General: This is an elderly male who appears to be in a moderate amount of respiratory distress, sitting on the side of the bed with use of accessory muscles and increased tachypnea, stating that he cannot breathe in through his nose, and still continues to have respiratory difficulties from a chest standpoint. Cardiovascular: Irregularly irregular rhythm. Lungs: Coarse and scattered rales and rhonchi throughout. There is no wheezing. Abdomen: Soft. Extremities: Benign. Neurological: Cranial nerves II through XII are grossly intact. The patient is alert and oriented x3 without any cognitive deficiencies. LABORATORY DATA: Today, white blood cell count elevated at 10.99. It is possible that this represents underlying infection versus leukocytosis secondary to steroids versus stress demargination. There is a slight left shift, up from 5.5 to 10.18. ABG is pending. Sodium 140, potassium 4.3, chloride 105, bicarb improved from 19 to 26, BUN and creatinine at 21 and 0.9. AST and ALT are normal. Phosphate noted to be slightly low at 2.2. IVIG from yesterday low at 520. IMPRESSION: An 84-year-old with acute respiratory failure, admitted for spontaneous left-sided pneumothorax, status post chest tube with interval improvement radiologically, now with acute decompensation, likely atrial fibrillation and congestive failure mediated secondary to fluid status. ABG is pending. We did discuss the possibility of transferring him to the intensive care unit for closer monitoring secondary to poor pulmonary reserve and the possibility of tiring from a respiratory standpoint and needing mechanical ventilation. 1. Cardiovascular. Atrial fibrillation with rapid ventricular response, intervally improved with rate down to 70 to 80, down from 130. Electrocardiogram is reviewed, showing some nonspecific flattening of the T-waves inferiorly. A proBNP is pending. He continues on anticoagulant as well as a chronotropic agent. 2. Pulmonary. Perhaps the biggest concern is bolus emphysema complicated by spontaneous pneumothorax of the left side, status post chest tube, with radiographic improvement, perception of ongoing dyspnea and difficulty breathing. We discussed the possibility of mucous plugging. He is already on Mucinex. He is already on scheduled inhalers. He is already on a steroid. We will be obtaining a stat ABG and correlating with clinical condition. Also, we discussed the possibility of Respiratory inducing a sputum to consider broadening his coverage of antibiotic, perhaps bumping up the steroid from 60 every 6 hours to 80 or 120 every 6 hours may be of benefit. My biggest concern is him tiring out from a respiratory standpoint, and requiring mechanical ventilation. We will be providing him 80 mg of Lasix for pulmonary edema concerns, and seeing how his respiratory status improves. Will also be switching him over from a nasal cannula to a Ventimask. Will be adding Mucomyst twice daily, and he will receive an unscheduled respiratory nebulizer treatment while the ABG is being obtained, and he is receiving Mucomyst treatment. 3. Infectious disease. No sputum and/or blood culture to date which is positive, now with elevated white blood cell count. Again, differential diagnosis is stress demargination, infection, and/or steroid mediated leukocytosis. We will be broadening antibiotics to include Zosyn 3.375. He is allergic to Levaquin, and already has some atypical coverage. Sputum induction has not been fully ruled out. A urinalysis with urine culture based on elevated white blood cell count. He continues to remain afebrile, and will continue to follow clinically. 4. Dysphagia. Etiology is queried. We discussed barium swallow, perhaps as soon as tomorrow. There may be a component of aspiration or microaspiration, which may be driving pulmonary concerns. 5. Nutrition. Poor oral intake secondary to choking sensation and coughing spasms. We will continue to follow clinically in this regard. 6. Electrolyte abnormalities, specifically hypophosphatemia. This may impair respiratory mechanics secondary to diaphragmatic fatigue and failure. Supplemental phosphorus will be offered as replacement. 7. Disposition. The patient appears to be clinically worsening. I have contacted the bed slot floor supervisor to move the patient to the intensive care unit secondary to concerns for impending respiratory failure. I have also notified the daughter, who is in agreement with this plan of care. We will continue to follow clinically in this regard. There are no new and/or additional issues at this time. Note is dictated on the morning of rounds. cc: Tony Galindo DO
[2019-10-30 11:30] LABS: LYMPHS 4 % (21-51); MONO 4 % (1-9); SEGS 92 % (42-75)
--- NOTE | 2019-10-30 11:53 | PROVIDER PROGRESS NOTE ---
Progress Note Dr. Hanna Progress Note/Pulmonary and or critical care We appreciated progress of care, Complications, change in diagnosis, and instructions to patient. Subjective: We note the level of consciousness, bed (chair) position, family presence (if any), level of lethargy, feeling of symptoms, and changes from baseline condition/symptom. The patient is lying in bed with a VM 50% on. He has some mild tachypnea and increased work of breathing. I noticed that he had one episode of severe cough when I was sitting in the dictation area. He states nothing comes out, but he does feel something there and hard to cough up. He has some audible expiratory bubbling breathing sounds. He reports no pain, but some chest congestion at this time. Objective: Vital Signs: We reviewed EMR current values for Pulse rate, Blood pressure, Pulse rate, respiratory rate and Pulse oximetry. Also noted other values and trends if present (e.g. I/O, CVP). T 98.5, MD 72, RR 18, BP 125/86 and SaO2 97% on NC 3L. Physical Examination: General: Mild to moderate respiratory distress with increased work of breathing and mild tachypnea. HEENT: Atraumatic. Normocephalic. Trachea midline. Mucus pink and slightly dry. Chest: Mild tachypnea. Increased work of breathing, but no accessory muscle use. Symmetrical excursion. Auscultation reveals coarse bubbling breathing sounds throughout both lung singletary. Left-sided chest tube in place. CVS: S1 and S2 noted. Abdomen: Soft. Bowel sounds present. Nondistended. Nontender. Extremities: No pedal edema. No cyanosis. No clubbing. Neuro: A/O x3. Speech fluent. Follow commands. Labs and Radiology: Reviewed available labs and radiology values available at time of EMR review. Laboratory Results 10/30/19 10/30/19 10/30/19 07:14 07:14 07:14 WBC 10.99 H RBC 5.28 Hgb 15.9 Hct 48.1 MCV 91.1 MCH 30.1 MCHC 33.1 RDW Std Deviation 14.0 Plt Count 169 MPV 10.6 H Immature Gran % (Auto) 0.0 Neut % (Auto) 92.6 H Lymph % (Auto) 3.4 L [place] % (Auto) 3.9 Eos % (Auto) 0.0 Baso % (Auto) 0.1 Immature Gran # (Auto) 0.00 Neut # (Auto) 10.18 H Lymph # (Auto) 0.37 L [place] # (Auto) 0.43 Eos # (Auto) 0.00 Baso # (Auto) 0.01 Segmented Neutrophils 92 H Lymphocytes 4 L Monocytes 4 Specimen Type Sample Site pH pCO2 pO2 HCO3 Base Excess Oxyhemoglobin ABG O2 Sat (Calculated) ABG O2 Saturation ABG Carboxyhemoglobin ABG Methemoglobin Gopal Test A-a O2 Difference Total Hemoglobin Lactate Liter Flow Blood Gas Modality FiO2 % Sodium 140 Potassium 4.3 Chloride 105 Carbon Dioxide 26 Anion Gap 9 BUN 21 Creatinine 0.9 Estimated GFR/1.73 m2 > 60 BUN/Creatinine Ratio 23 Glucose 176 H Calculated Osmolality 287 Calcium 8.8 Phosphorus 2.2 L Magnesium 2.2 Total Bilirubin 0.79 AST 26 ALT 24 Alkaline Phosphatase 49 [id number] Pept 1153 H Total Protein 5.8 L Albumin 3.3 L Globulin 2.5 Albumin/Globulin Ratio 1.3 10/30/19 10:15 WBC RBC Hgb Hct MCV MCH MCHC RDW Std Deviation Plt Count MPV Immature Gran % (Auto) Neut % (Auto) Lymph % (Auto) [place] % (Auto) Eos % (Auto) Baso % (Auto) Immature Gran # (Auto) Neut # (Auto) Lymph # (Auto) [place] # (Auto) Eos # (Auto) Baso # (Auto) Segmented Neutrophils Lymphocytes Monocytes Specimen Type ARTERIAL Sample Site R RADIAL pH 7.35 pCO2 46 H pO2 144 H HCO3 24.3 Base Excess -0.8 Oxyhemoglobin 96.9 ABG O2 Sat (Calculated) 24.0 H ABG O2 Saturation 100.0 ABG Carboxyhemoglobin 2.30 ABG Methemoglobin 0.8 Gopal Test YES A-a O2 Difference 155.0 Total Hemoglobin 17.5 H Lactate 1.70 Liter Flow 15.0 Blood Gas Modality VENTIMASK FiO2 % 50.0 Sodium Potassium Chloride Carbon Dioxide Anion Gap BUN Creatinine Estimated GFR/1.73 m2 BUN/Creatinine Ratio Glucose Calculated Osmolality Calcium Phosphorus Magnesium Total Bilirubin AST ALT Alkaline Phosphatase [id number] Pept Total Protein Albumin Globulin Albumin/Globulin Ratio Assessment: Severe COPD New left-sided pneumothorax. Surgeon on board. Chest tube placement on 10/28/19. Dyspnea at rest. Improving. Chronic hypoxemic respiratory failure. Recent upper respiratory infection, being treated as a viral illness. Plan: Continue current treatment and supportive care per admitting and other teams on the case. Supplemental oxygen titrated to patients needs. Bronchodilators. Mucomyst. Cough meds prn. Antibiotic (Azithromycin). Solu-Medrol. Transfer to ICU per Admitting MD. Input was appreciated from Admitting MD and other teams on the case. (Christos Ledezma)
[2019-10-30] MEDS ORDERED: ATIVAN IV PRN (12:23)
[2019-10-30] MEDS: ASTELIN NASAL SPRAY NAS SCH ×2 (13:51→20:34)
[2019-10-30] MEDS: NEUTRA-PHOS PO SCH ×3 (17:30→20:32)
[2019-10-30] MEDS: MUCOMYST 20% PO SCH (20:30)
[2019-10-30] MEDS: FOLIC ACID PO SCH (20:32)
[2019-10-30] MEDS: XALATAN 0.005% OPH SOLN BOTH EYES SCH (20:33)
[2019-10-31] MEDS: DUONEB (A & A) INH SCH ×6 (06:47→23:32)
--- NOTE | 2019-10-31 07:27 | GENERAL SURGERY PROGRESS NOTE ---
DATE: 10/31/2019 SUBJECTIVE: The patient says he is breathing better. Nursing staff reports no major issues. He was transferred to the ICU yesterday because of respiratory status, but he seems to be doing a little bit better now. OBJECTIVE: Vital Signs: Patient is currently afebrile. His vital signs are stable. General: No acute distress. HEENT: Normocephalic, atraumatic. Pupils equal, round, reactive to light. Mucous membranes moist. Oropharynx benign. Neck: Supple. Trachea midline. Cardiovascular: Regular rate and rhythm. Lungs: No air leak noted to chest tube. The chest tube is back to suction. Some coarse sounds noted. Abdomen: Soft, nontender, nondistended. Extremities: Moves all extremities. Neurologic: Grossly intact. Skin: No signs of jaundice. Vascular: All extremities perfused. LABORATORY: None this morning. Chest x-ray pending, but reviewed chest x-ray from over the weekend. ASSESSMENT AND PLAN: An 84-year-old gentleman with spontaneous left pneumothorax secondary to likely ruptured bleb. Left pneumothorax. At this time, we will keep chest tube to suction. We will follow up with morning chest x-ray. We may want to keep it to suction for another day given the fact that it declined placing it to water seal, but we will continue to monitor. cc: MD Tony Lora, DO
--- NOTE | 2019-10-31 07:44 | PROGRESS NOTE ---
DATE: 10/31/2019 INDICATION FOR ONGOING HOSPITALIZATION: The patient having been transferred to the ICU yesterday as a precaution measure for worsening respiratory status, increased work of breathing, and progression of pneumothorax after suction was turned off. It was felt, based on his increased work of breathing, that he was at high risk for decompensation to the point of perhaps needing the ventilator. Therefore, he was moved to the ICU. He did receive 80 mg of Lasix IV as well. He has remained hemodynamically stable overnight. T-max 98.2 degrees. Current vitals show blood pressure 160/93, respirations between 22 and 15, pulse between 68 and 81. I's and O's demonstrate only 90 mL out since IV Lasix. I think that this is a result of poor documentation. We will continue to follow in this regard. Patient without laboratory for today, but we will be obtaining a barium swallow to rule out the presence of an aspirative component to the patient's respiratory issues. He does appear to be breathing better today. Chest tube has been restarted to intermittent suction with interval improvement. PHYSICAL EXAMINATION: HEENT: Unremarkable. Cardiovascular: Distant heart sounds. Atrial fibrillation with irregular regular rhythm is noted. Lungs: Decreased breath sounds in the left hemithorax with coarse expiratory rhonchi in the right hemithorax. Abdomen: Soft, nontender. Extremities: Benign, without clubbing, cyanosis, or edema. Friable skin and scattered areas of ecchymosis are noted in the upper extremities bilaterally. Neurological: Cranial nerves II through XII are grossly intact. The patient is alert and oriented x3 without any cognitive deficiencies. IMPRESSION: An 84-year-old with acute respiratory failure secondary to spontaneous left-sided pneumothorax. Further decompensation yesterday with chest tube on water seal only, and radiographic progression of pneumothorax. Surgery was notified. Patient transferred to the intensive care unit, and intermittent suction has resumed. Followup PA and lateral chest x-ray are anticipated for this morning, as well as swallowing study. To date, the patient is without focal source of infection. We did discuss the possibility of a CT scan without contrast. The patient was resistant yesterday secondary to poor respiratory reserve. I do think that we will try to piggy back that on to his studies this morning. I am disappointed that despite all of our best efforts, he remains minimally improved. I await any additional input from Pulmonology as they reassess the patient this morning. No new issues at this time. Note is dictated on the morning of rounds. cc: Tony Galindo,
[2019-10-31] MEDS: SOLU-MEDROL IV SCH ×3 (08:10→23:13)
[2019-10-31] MEDS: ASTELIN NASAL SPRAY NAS SCH ×2 (08:11→20:04)
[2019-10-31] MEDS: TIMOPTIC 0.5% OPH SOLUTION LEFT EYE SCH ×2 (08:11→20:04)
[2019-10-31] MEDS: TRUSOPT 2% OPH SOLN LEFT EYE SCH ×2 (08:12→23:08)
[2019-10-31 08:13] LABS: URINE SOURCE CATH
[2019-10-31 08:16] LABS: BILIRUBIN URINE NEGATIVE (NEGATIVE); BLOOD URINE MODERATE (NEGATIVE); COLOR ORANGE; GLUCOSE URINE NEGATIVE (NEGATIVE); KETONE URINE NEGATIVE (NEGATIVE); LEUKOCYTES URINE NEGATIVE (NEGATIVE); NITRITE URINE NEGATIVE (NEGATIVE); PH URINE 5.5; PROTEIN URINE TRACE mg/dL (NEGATIVE); SP GRAVITY URINE 1.022; TURBIDITY URINE HAZY (CLEAR); UROBILINOGEN URINE NORMAL (NORMAL)
[2019-10-31 08:18] LABS: UR EPITHELIAL CELLS <10 /HPF (<10); URINE BACTERIA NEGATIVE /HPF; URINE RBC TNTC /HPF (<10); URINE WBC <10 /HPF (<10)
[2019-10-31 08:31] LABS: URINE YEAST NONE SEEN
[2019-10-31] MEDS: MUCOMYST 20% PO SCH ×2 (08:34→20:38)
[2019-10-31] MEDS: SPIRIVA INH SCH (08:35)
[2019-10-31] MEDS: ADVAIR 500/50 DISKUS INH SCH ×2 (08:35→20:03)
--- NOTE | 2019-10-31 09:51 | Diag Imaging Result Doc PS360 ---
EXAM: CHEST-2 VIEWS HISTORY: Left sided PTX TECHNIQUE: Two views COMPARISON: 10/30/2019 FINDINGS: There is a small left-sided pneumothorax. This has decreased in size compared to the prior study. Severe emphysema. There is apical scarring. No cardiomegaly. No pulmonary edema. IMPRESSION: Interval improvement Electronically signed by Cesar Peña 10/31/2019 9:48 AM
--- NOTE | 2019-10-31 09:51 | Diag Imaging Result Doc PS360 ---
EXAM: BA SWALLOW W/VIDEO SPEECH THER 10/31/2019 HISTORY: aspiration suspect TECHNIQUE: 120 images, fluoroscopy time 21 seconds, dose 158 mGy COMMENT: There is no evidence of aspiration. The patient was able to swallow liquid and pudding consistency barium without difficulty. There is some tertiary contraction in the distal esophagus. IMPRESSION: Presbyesophagus. No evidence of aspiration. Electronically signed by Jonathon Mckeon 10/31/2019 9:48 AM
[2019-10-31] MEDS: D5 NS 1,000 ML IV SCH ×3 (10:23→17:07)
[2019-10-31] MEDS: MUCINEX PO SCH ×2 (10:24→20:02)
[2019-10-31] MEDS: NEUTRA-PHOS PO SCH ×4 (10:24→20:02)
[2019-10-31] MEDS: CARDIZEM CD PO SCH ×2 (10:24→20:01)
[2019-10-31] MEDS: ELIQUIS PO SCH ×2 (10:24→20:01)
[2019-10-31] MEDS: CRESTOR PO SCH (10:24)
--- NOTE | 2019-10-31 10:37 | Diag Imaging Result Doc PS360 ---
EXAM: CT THORAX W/O CONTRAST 10/31/2019 HISTORY: PTX left sided TECHNIQUE: This exam was performed using automated exposure control, adjustment of mA or kV according to patient size, and/or use of iterative reconstruction technique. COMMENT: There are irregular thick pleural plaques in both apices posteriorly with some calcification. There is some calcification in the posterior costophrenic sulcus of the right lower lobe. There are number of hepatic cysts and a large cyst arising from the left kidney. Compared to 06/20/2019 these findings were present previously. The regional skeleton is stable in appearance. There are large emphysematous blebs present in the right upper and middle lobes. There is a small pneumothorax on the right which is particularly visible anteriorly. There is soft tissue emphysema in the left chest wall. There is a small bore catheter present in the left pleural space mostly in the fissure. There is also a small pneumothorax on the left. There is bullous emphysema in the left upper lobe posteriorly. The pneumothorax on the right was much larger at the time the previous study. The left-sided pneumothorax was not present previously. There are fibrotic changes in both lung bases. In addition to this there are some very small patchy areas of groundglass opacity in the right lower lobe which may represent mild pneumonia. There is a small pleural-based nodule in the left lower lobe on image 103 which has not changed since the previous study. IMPRESSION: New left pneumothorax. Improved right pneumothorax. Minimal right lower lobe pneumonia. Other findings as described above. Electronically signed by Jonathon Mckeon 10/31/2019 10:35 AM
--- NOTE | 2019-10-31 13:21 | PULMONOLOGY PROGRESS NOTE ---
DATE: 10/31/2019 SUBJECTIVE: The patient is awake and alert. He reports he had some difficulty swallowing yesterday, but this has improved. His breathing has improved as well. OBJECTIVE: Vital Signs: The patient has been afebrile for the last 24 hours. Blood pressure 153/91, heart rate 93, respiratory rate 30, oxygen saturation 97%. HEENT: Pupils are equal and reactive. Oropharynx is clear. Neck: Supple. Chest: Reveals minimal subcu air noted in the lateral chest wall. Cardiac: Exam S1-S2. Abdomen: Soft. Extremities: Without edema. LABORATORIES: Chest x-ray reveals small left-sided pneumothorax at the apex with small-bore chest tube placement seen. He has small amount air in the subcutaneous tissues. CT scan of the thorax which was compared to CT scan 06/20/2019 reveals diffuse bilateral emphysematous changes with large bleb disease. Previous CT scan has a right pneumothorax which is minimal on the scan. He has a new small left-sided pneumothorax with a small bore catheter in place. IMPRESSION: 1. An 84-year-old with is severe emphysema/bleb disease. 2. Recurrent pneumothorax. 3. Dysphagia yesterday, which has resolved. Barium swallow without evidence of aspiration. PLAN: 1. Continue small-bore chest tube management per General Surgery. 2. Diet as tolerated. 3. Routine bronchial hygiene. 4. Consider immunoglobulin with infection. cc: MD Tony Hartley,
[2019-10-31] MEDS: ZOSYN 2.25 GM in NS 50 ML IV SCH (20:01)
[2019-10-31] MEDS: FOLIC ACID PO SCH (20:02)
[2019-10-31] MEDS: XALATAN 0.005% OPH SOLN BOTH EYES SCH (20:04)
[2019-11-01] MEDS: ZOSYN 2.25 GM in NS 50 ML IV SCH ×4 (02:03→20:29)
[2019-11-01] MEDS: D5 NS 1,000 ML IV SCH ×2 (02:03→16:06)
[2019-11-01] MEDS: DUONEB (A & A) INH SCH ×6 (04:02→22:43)
--- NOTE | 2019-11-01 07:50 | PROGRESS NOTE ---
DATE: 11/01/2019 INDICATION FOR PROLONGED HOSPITALIZATION.: Ongoing medical management for spontaneous left-sided pneumothorax status post chest tube placement. The patient continues to be in the ICU for observation although clinically stable and improved. He should be transferred to the floor based on the bed availability. Patient without significant complaints this morning. This morning, blood pressure 156/96, respiratory rate at 15, pulse at 75, saturating 98% on 15 L Ventimask. Intake and output are reviewed. He is 12.7 in and 9.1 L out for positive 3.5 L, since hospitalization over the past 24 hours, 2395 in and 1115 out for +1280. LABORATORY: For this morning is pending at the time of dictation. I have ordered a CMP, CBC magnesium, phosphorus and a D-dimer. PHYSICAL EXAMINATION: HEENT: Unremarkable. Cardiovascular: Tachycardic and irregular. Lungs: With diffuse bilateral coarse breath sounds. Abdomen: Soft, somewhat distended with normoactive bowel sounds and no evidence of guarding, rebound or rigidity. Extremities: Benign. Significant ecchymosis is noted of the upper extremities bilaterally. Neurological: Cranial nerves II through XII are grossly intact. The patient is noted to be hard of hearing. IMPRESSION: An 84-year-old with acute respiratory distress secondary to left-sided pneumothorax status post chest tube placement. Surgery continues to monitor this. We did discuss the possibility of intravenous immunoglobulin but there is currently no focal source of infection other than a questionable pneumonia in the right lower lobe. It is difficult to determine whether this is truly a pneumonic process or whether this represents atelectasis secondary to chronic pneumothorax. We will be checking some laboratory this morning. I do suspect that if he has a leukocytosis this will likely be related to steroids. He is otherwise hemodynamically stable although continues with atrial fibrillation with rapid ventricular response. Computed tomography scan from yesterday and barium swallow from yesterday were reviewed and discussed with the patient last night at the bedside. DISPOSITION: Anticipate moving to the floor. No new and/or additional recommendations at this time. I did discuss briefly with the daughter last night transitioning to rehab secondary to prolonged hospitalization and chest tube. The patient might do better with rehab versus going directly home. We will see if he would be a good candidate for inpatient [facility] in [place]. We will go ahead and put in an order for social work for an evaluation in that regard. No further issues at this time. Note is dictated on the morning of rounds. cc: Tony Galindo,
--- NOTE | 2019-11-01 08:03 | GENERAL SURGERY PROGRESS NOTE ---
DATE: 11/01/2019 SUBJECTIVE: The patient seems to be doing okay. OBJECTIVE: Vital Signs: The patient is currently afebrile. His vital signs are stable. General: No acute distress. HEENT: Normocephalic, atraumatic. Pupils equal, round, reactive to light. Mucous membranes moist. Oropharynx benign. Neck: Supple. Trachea midline. Cardiovascular: Regular rate and rhythm. Lungs: No air leak noted. Chest tube changed to water seal. Abdomen: Soft, nontender, nondistended. Extremities: Moves all extremities. Neurologic: Grossly intact. Skin: No signs of jaundice. Vascular: All extremities perfused. LABORATORY DATA: None this morning as of yet. IMAGING: CT scan from yesterday reviewed. ASSESSMENT AND PLAN: An 84-year-old gentleman with left-sided pneumothorax. Left-sided pneumothorax. At this time, CT scan looks improved. Will place his chest tube to water seal. Will continue to monitor him. Hopefully, his lung will stay inflated. He has no air leak, but will continue to monitor him. cc: MD Tony Lora,
[2019-11-01] MEDS: ADVAIR 500/50 DISKUS INH SCH ×2 (08:10→19:52)
[2019-11-01] MEDS: MUCOMYST 20% PO SCH ×2 (08:11→19:52)
[2019-11-01] MEDS: SPIRIVA INH SCH (08:11)
[2019-11-01] MEDS: NEUTRA-PHOS PO SCH ×4 (08:18→20:30)
[2019-11-01] MEDS: SOLU-MEDROL IV SCH ×2 (08:18→16:06)
[2019-11-01] MEDS: CRESTOR PO SCH (08:18)
[2019-11-01] MEDS: ELIQUIS PO SCH (08:19)
[2019-11-01] MEDS: MUCINEX PO SCH ×2 (08:19→20:29)
[2019-11-01] MEDS: TIMOPTIC 0.5% OPH SOLUTION LEFT EYE SCH ×2 (08:19→20:31)
[2019-11-01] MEDS: TRUSOPT 2% OPH SOLN LEFT EYE SCH ×2 (08:19→20:30)
[2019-11-01] MEDS: ASTELIN NASAL SPRAY NAS SCH ×2 (08:19→20:32)
[2019-11-01] MEDS: CARDIZEM CD PO SCH ×2 (08:19→20:30)
[2019-11-01 08:33] LABS: AGAP 9; ALB/GLOB RATIO 1.3; ALBUMIN 2.9 g/dL (3.5-5.0); ALKALINE PHOSPHATASE 41 U/L (32-122); BUN 26 mg/dL (8-22); CALCIUM 7.9 mg/dL (8.8-10.2); CHLORIDE 104 mmol/L (98-107); COSMO 289; CREATININE 0.9 mg/dL (0.7-1.2); ESTIMATED GFR > 60; GLUCOSE 183 mg/dL (70-104); GOT 17 U/L (10-34); GPT 26 U/L (10-44); PHOSPHORUS 2.9 mg/dL (2.7-4.5); POTASSIUM 3.8 mmol/L (3.5-5.1); SODIUM 140 mmol/L (136-145); TCO2 27 mmol/L (25-35); TOTAL BILIRUBIN 0.91 mg/dL (0.20-1.00); TOTAL PROTEIN 5.2 g/dL (6.3-8.3)
[2019-11-01 08:40] LABS: BASO# 0.02 X1000 (0.0-0.2); BASO% 0.3 % (0.0-0.8); HEMATOCRIT 48.1 % (42.0-52.0); HEMOGLOBIN 15.9 g/dL (14.0-18.0); IMM GRAN# 0.03 X1000 (0.0-0.04); IMM GRAN% 0.4 % (0.0-0.5); LYMPH# 0.43 X1000 (1.2-3.4); LYMPH% 5.4 % (20.5-51.1); MCH 29.9 PG (27-31); MCHC 33.1 g/dL (33-37); MCV 90.6 FL (81-99); MONO# 0.32 X1000 (0.11-0.59); MPV 10.8 FL (7.4-10.4); NEUT# 7.15 X1000 (1.4-6.5); NEUT% 89.9 % (42.2-75.2); PLT 172 X1000 (130-400); RBC 5.31 XMIL (4.7-6.1); RDW 13.4 % (11.5-14.5); WBC 7.95 X1000 (4.8-10.8)
[2019-11-01 10:38] LABS: BANDS 2 % (0-1); LYMPHS 12 % (21-51); MONO 2 % (1-9); SEGS 84 % (42-75)
[2019-11-01 10:40] LABS: URINE SOURCE CLEAN CATCH
[2019-11-01 10:48] LABS: BILIRUBIN URINE NEGATIVE (NEGATIVE); BLOOD URINE LARGE (NEGATIVE); COLOR BROWN; GLUCOSE URINE 70 mg/dL (NEGATIVE); KETONE URINE TRACE mg/dL (NEGATIVE); LEUKOCYTES URINE SMALL (NEGATIVE); NITRITE URINE NEGATIVE (NEGATIVE); PH URINE 5.5; PROTEIN URINE 50 mg/dL (NEGATIVE); SP GRAVITY URINE 1.028; TURBIDITY URINE TURBID (CLEAR); UR EPITHELIAL CELLS <10 /HPF (<10); URINE BACTERIA NEGATIVE /HPF; URINE RBC TNTC /HPF (<10); URINE WBC 20-40 /HPF (<10); UROBILINOGEN URINE NORMAL (NORMAL)
[2019-11-01] MEDS: FOLIC ACID PO SCH (20:30)
[2019-11-01] MEDS: XALATAN 0.005% OPH SOLN BOTH EYES SCH (20:31)
--- NOTE | 2019-11-01 21:31 | PULMONOLOGY PROGRESS NOTE ---
DATE: 11/01/2019 SUBJECTIVE: The patient is awake and alert. He reports he has had some difficulty with his catheter which required flushing by his description. He denies shortness of breath. He has some minimal sputum production. OBJECTIVE: Vital Signs: He has been afebrile over the last 24 hours. Blood pressure 151/84, heart rate 88, respiratory rate 17, oxygen saturation 97% on 4 L per nasal cannula. HEENT: Pupils are equal and reactive. Oropharynx appears clear. Neck: Supple. Chest: Reveals small chest tube in left hemithorax. No significant subcutaneous air appreciated. Diminished breath sounds bilaterally with minimal wheeze. Cardiac: S1-S2. Abdomen: Soft. Extremities: Without edema. LABORATORIES: CT scan of the thorax is compared to 1 performed last May. The previous right-sided pneumothorax is essentially resolved but has significant bleb disease. The left-sided pneumothorax is improved compared to chest x-ray. IMPRESSION: An 84-year-old with 1. Severe emphysema/bleb disease. 2. Recurrent pneumothoraces. 3. Mild hematuria. PLAN: 1. Continue small bore chest tube management per General Surgery. 2. Recommend decreasing steroids. The steroids will sometimes make it more difficult to seal the lung that has a pneumothorax. 3. Continue routine bronchial hygiene. 4. Consider immunoglobulin replacement if he has signs of infection with decline. cc: MD Tony Hartley, DO
[2019-11-02] MEDS: ZOSYN 2.25 GM in NS 50 ML IV SCH ×4 (02:55→19:25)
[2019-11-02] MEDS: D5 NS 1,000 ML IV SCH ×3 (02:57→19:26)
[2019-11-02] MEDS: DUONEB (A & A) INH SCH ×6 (03:29→23:30)
--- NOTE | 2019-11-02 07:14 | GENERAL SURGERY PROGRESS NOTE ---
DATE: 11/02/2019 SUBJECTIVE: The patient is doing okay. He is transferred to the floor. OBJECTIVE: Vital Signs: The patient is currently afebrile. His vital signs are stable. General: No acute distress. HEENT: Normocephalic, atraumatic. Pupils equal, round, reactive to light. Mucous membranes moist. Oropharynx benign. Neck: Supple, trachea midline. Cardiovascular: Regular rate and rhythm. Lungs: No air leak noted, but the chest tube is not tunneling with respirations. Abdomen: Soft, nontender, nondistended. Extremities: Moves all extremities. Neurologic: Grossly intact. Skin: No signs of jaundice. Vascular: All extremities perfused. DIAGNOSTIC DATA: Chest x-ray this morning is pending. ASSESSMENT AND PLAN: An 84-year-old gentleman with left-sided pneumothorax. Left-sided pneumothorax: At this time, we will follow up with a morning chest x-ray. I am somewhat concerned that his chest tube may be occluded given the lack of tidal respirations, but he seems to be doing okay at this point. We may consider removing the tube here in the near future. cc: MD Tony Lora, DO
[2019-11-02] MEDS: MUCOMYST 20% PO SCH (07:27)
--- NOTE | 2019-11-02 07:32 | Diag Imaging Result Doc PS360 ---
EXAM: CHEST-PORTABLE HISTORY: abnormal exam TECHNIQUE: Single view COMPARISON: 10/31/2019 FINDINGS: The lungs are well expanded. No cardiomegaly. There are increased interstitial markings in the apices and lung bases. Likely scarring in the apices. The interstitial markings in the lung bases are more pronounced on the current study. Small left pneumothorax with a small left chest tube. These are unchanged. IMPRESSION: Development of basilar infiltrates and/or atelectasis Electronically signed by Cesar Peña 11/02/2019 7:29 AM
[2019-11-02] MEDS: ADVAIR 500/50 DISKUS INH SCH ×2 (07:52→19:52)
[2019-11-02] MEDS: SPIRIVA INH SCH (08:07)
--- NOTE | 2019-11-02 08:26 | PROGRESS NOTE ---
DATE: 11/02/2019 INDICATION FOR PROLONGED HOSPITALIZATION: Patient has persistence of a chest tube in the left mid hemithorax secondary to spontaneous pneumothorax. Surgery continues to provide surgical oversight in management and Pulmonology as additional management consideration. Overnight, patient was clinically stable. He was moved to the floor yesterday afternoon from the ICU. OBJECTIVE: VITAL SIGNS: This morning, blood pressure 157/83, respirations at 14, pulse at 83, temperature at 97.9 degrees, T-max at 98.7 degrees. Intake and output over the past 24 hours 3.6 L in and 1.1 L out for +2.4 L. IMAGING: Chest x-ray this morning suggesting increased interstitial markings in the bases, more pronounced than previous study. This might be fluid-mediated. PHYSICAL EXAMINATION: HEENT: Unremarkable. Cardiovascular: Atrial fibrillation with rate controlled response. Lungs: Clear inspiratory breath sounds and increased and prolonged expiratory phase throughout but no wheezes or rhonchi are appreciated. There is decreased breath sounds in the left posterior base compared to the right. Abdomen: Unremarkable. Extremities: Benign. Neurological: Cranial nerves 2-12 are grossly intact. IMPRESSION: An 84-year-old with spontaneous left-sided pneumothorax status post chest tube. Chest tube placed on 10/28/2019. This would be day #6. Mid week it was placed to water seal with worsening of pneumothorax, subsequently return to suction with interval improvement. Surgery continues to consider discontinuing the chest tube. It is a concern with chronic/persistent right- sided pneumothorax that this might result in a chronic left-sided pneumothorax resulting in marked decreased activity tolerance and respiratory reserve. He already dotson a long history of bullous emphysema, and is already on chronic oxygen therapy. I do think the patient would be an excellent candidate for post discharge rehab prior to returning to home. Steroids have been modified per Pulmonology service and I anticoagulant has been stopped secondary to hematuria experienced with unintentional Goins trauma. Yesterday the Goins has been removed to the urine appears to be clearing. DISPOSITION: No other recommendations are concerns at this time. Patient will be transitioned to a regular diet at his request. Awaiting disposition for post discharge rehab placement. Also awaiting a surgical decision for removal of left-sided chest tube. The patient understands the course of treatment and plan. No further issues at this time. Note is dictated on the morning of rounds. cc: Tony Galindo DO
[2019-11-02] MEDS: ASTELIN NASAL SPRAY NAS SCH ×3 (09:09→22:38)
[2019-11-02] MEDS: TIMOPTIC 0.5% OPH SOLUTION LEFT EYE SCH ×3 (09:10→22:39)
[2019-11-02] MEDS: TRUSOPT 2% OPH SOLN LEFT EYE SCH ×3 (09:11→22:39)
[2019-11-02] MEDS: PREDNISONE PO SCH (09:12)
[2019-11-02] MEDS: MUCINEX PO SCH ×3 (09:12→22:40)
[2019-11-02] MEDS: CARDIZEM CD PO SCH ×3 (09:13→22:40)
[2019-11-02] MEDS: CRESTOR PO SCH (09:13)
[2019-11-02] MEDS: NEUTRA-PHOS PO SCH ×5 (09:14→22:40)
[2019-11-02] MEDS: FOLIC ACID PO SCH ×2 (19:26→22:40)
[2019-11-02] MEDS: XALATAN 0.005% OPH SOLN BOTH EYES SCH ×2 (19:27→22:39)
--- NOTE | 2019-11-02 21:44 | PULMONOLOGY PROGRESS NOTE ---
DATE: 11/02/2019 SUBJECTIVE: The patient is awake, alert, and conversant. He is sitting in the bedside chair. He reports he has had a pretty good day, but he has had some constipation. He is without shortness of breath at rest. OBJECTIVE: Vital Signs: The patient has been afebrile for the last 24 hours. Blood pressure 124/79, heart rate 87, respiratory rate 20, oxygen saturation 97% on 4 L per nasal cannula. HEENT: Pupils are equal and reactive. Oropharynx appears clear. Neck: Supple. Chest: Reveals a small-bore chest tube in the left hemithorax. No air leak noted. Cardiac exam: S1- S2. Abdomen: Soft. Extremities: Without edema. LABORATORIES: Small apical pneumothorax noted on the left. Mild increased interstitial markings. IMPRESSION: 1. Severe emphysema/bleb disease with recurrent pneumothoraces. 2. Mild hematuria. 3. Constipation. PLAN: 1. Agree with General Surgery. The small-bore chest tube does not appear to be functioning at this juncture, and I agree with removal. 2. Continue bronchial hygiene. 3. Consider immunoglobulin replacement if he has signs of an active infection. cc: MD Tony Hartley, DO
[2019-11-03] MEDS: ZOSYN 2.25 GM in NS 50 ML IV SCH ×2 (02:32→10:38)
[2019-11-03] MEDS: DUONEB (A & A) INH SCH ×3 (03:42→11:25)
[2019-11-03] MEDS: ADVAIR 500/50 DISKUS INH SCH (07:43)
[2019-11-03] MEDS: SPIRIVA INH SCH (07:44)
--- NOTE | 2019-11-03 08:32 | GENERAL SURGERY PROGRESS NOTE ---
DATE: 11/03/2019 SUBJECTIVE: Patient seems to be doing okay. He is coughing up more. Discussed this case with Dr. Galindo yesterday. OBJECTIVE: Vital Signs: Patient is currently afebrile. His vital signs are stable. General exam: No acute distress. HEENT: Normocephalic, atraumatic. Pupils equal, round, reactive to light. Mucous membranes moist. Oropharynx benign. Neck: Supple. Trachea midline. Cardiovascular: Regular rate and rhythm. Lungs: Still no change with respirations on the chest tube. No air leak. The chest tube removed at the bedside during maximal inspiration. Abdomen: Soft, nontender, nondistended. Extremities: Moves all extremities. Neurologic: Grossly intact. Skin: No signs of jaundice. Vascular: All extremities perfused. LABORATORY: None. IMAGING: Chest x-ray is pending for 10 o'clock today. ASSESSMENT/PLAN: An 84-year-old gentleman with left-sided pneumothorax. 1. Left-sided pneumothorax. At this time, removed the chest tube at the bedside this morning, which patient tolerated. I suspect it was occluded because it was not changing with respirations. We will follow up with chest x-ray. Patient seemed to tolerate it well. Discussed with the nurse to call if any shortness of breath and told the patient to call. cc: MD Tony Lora, DO
--- NOTE | 2019-11-03 10:17 | Diag Imaging Result Doc PS360 ---
CHEST-PORTABLE - 11/03/2019 INDICATION: chest tube removal COMPARISON: 11/02/2019 FINDINGS: There has been removal of the left basilar chest tube. There has been significant worsening in the severe soft tissue gas, worst at the left lateral chest wall extending to the base of the neck and the mediastinum. There is a stable small persistent pneumothorax at the left lung apex. Otherwise, the lungs remain well expanded. Stable infiltrate/scarring at both lung bases mainly on the left side. Heart size remains normal. IMPRESSION: Removal of the left basilar chest tube. Stable small chronic pneumothorax at the left apex. Significant worsening in soft tissue gas. Electronically signed by Kamar Ferrera 11/03/2019 10:15 AM
[2019-11-03] MEDS: PREDNISONE PO SCH (10:37)
[2019-11-03] MEDS: D5 NS 1,000 ML IV SCH (10:37)
[2019-11-03] MEDS: ASTELIN NASAL SPRAY NAS SCH (10:37)
[2019-11-03] MEDS: CRESTOR PO SCH (10:38)
[2019-11-03] MEDS: TRUSOPT 2% OPH SOLN LEFT EYE SCH (10:38)
[2019-11-03] MEDS: NEUTRA-PHOS PO SCH ×2 (10:38→13:05)
[2019-11-03] MEDS: CARDIZEM CD PO SCH (10:38)
[2019-11-03] MEDS: MUCINEX PO SCH (10:38)
[2019-11-03] MEDS: TIMOPTIC 0.5% OPH SOLUTION LEFT EYE SCH (10:39)
[2019-11-03 12:03] VITALS: BP 149/90
--- NOTE | 2019-11-03 22:05 | DISCHARGE SUMMARY ---
ADMISSION DATE: 10/27/2019 DISCHARGE DATE: 11/03/2019 DISCHARGE DIAGNOSIS: 1. Symptomatic pneumothorax on the left, spontaneous in nature resulting in chest tube placement on the , secondary to rapid decline in respiratory status. Over the weekend of October 29, an attempt to seal off the chest tube was not tolerated with worsening of respiratory status, increased work of breathing, and uncertainty as to the patient's ability to maintain respirations. The patient was transferred to the intensive care unit with ongoing pulmonary and critical care management. 2. Atrial fibrillation with rapid ventricular response. Further contributing towards respiratory distress. 3. Known and historical abnormal CT scan with pleural plaques apically located. Pulmonary fibrosis and pleural based nodularity unchanged when compared to historical study dated 06/20/2019. 4. Radiographic evidence of hepatic and kidney cysts. 5. Hypophosphatemia, replaced orally. 6. Traumatic Goins catheterization resulting in hematuria. 7. Immunoglobulin deficiency with IgG level measured at 520. No supplemental immunoglobulin is provided based on the negative sputum culture, negative blood cultures. PROCEDURES DURING ADMISSION: CT scan of the chest on 10/31. CONSULTATIONS: During admission including general surgery for chest tube placement. Pulmonology critical care for respiratory issues. HOSPITAL COURSE: The patient was admitted on the for worsening respiratory status. It was felt based on outpatient failure for presumed viral respiratory illness, the patient would be admitted for more aggressive approach. He was noted on chest x-ray to have development of a new/spontaneous left-sided pneumothorax. Over the first 24 to 36 hours, the pneumothorax appeared to increase in size from approximately 10% to 40% resulting in worsening respiratory status and surgical intervention with placement of pneumo-dart chest tube. This provided the patient immediate relief over the weekend. An attempt to clamp off the chest tube was not tolerated secondary to worsening pneumothorax and clinical decline from a respiratory standpoint. He was subsequently transferred to the intensive care unit and watched for approximately 48 hours with some general improvement. On the morning of the , the chest tube was discontinued and the patient appears to be clinically stable. Oxygenating well on nasal cannula oxygen and is interested in transitioning to rehab prior to going home. MEDICATIONS: At the time of discharge including DuoNeb q. 4 hours p.r.n., Astelin spray 137 mcg 1 nasally b.i.d., diltiazem 120 mg b.i.d., Trusopt ophthalmic as directed, folic acid 1 mg p.o. daily, Mucinex 1200 mg p.o. b.i.d., Xalatan drops as directed, Chloraseptic spray as directed, Crestor 10 mg p.o. daily, Timoptic eyedrops as directed, Spiriva 18 mcg 1 puff daily. Albuterol HFA 2 puffs q. 2 to 4 hours p.r.n. as rescue inhaler, Eliquis 5 mg b.i.d., Tessalon 100 mg t.i.d., Advair 50/500, 1 puff b.i.d., Robitussin AC 5 to 10 mL q. 6-8 hours p.r.n. #120 mL. Prednisone 15 mg daily for 7 days. DISPOSITION: The patient is anticipated for placement at [facility] in [place]. I believe that he has received optimal maximal inpatient benefit at this point, and would definitely benefit from transitioning to rehab secondary to what appears to be now 2/what appears to be bilateral pneumothoraces, this on top of bullous emphysema/COPD and a cardiac history of atrial fibrillation complicated by RVR. Of interest, the patient also carries a diagnosis of immunoglobulin deficiency and has historically received immunoglobulin supplement, however based on no evidence of a positive culture or source of infection during this admission, no supplemental IVIG is been provided. We continue to follow clinically in this regard. The patient understands course of treatment and plan. No further issues at this time. Note is dictated on the morning of anticipated discharge. cc: DO SERJIO Fuller
== END 2019-11-03 13:23 | DRG 199 ==
LOC: ED 10:18 → 4N 13:55 → ICU 10-30 14:40 → 4N 11-01 17:16
PROVIDERS: ADMIT Internal Medicine; ATTEND Internal Medicine